=== PATIENT | female | born 1980 | race Hispanic/Latino ===

== ENCOUNTER 2019-03-05 22:21 | Emergency (ER) | payer BC, OTHER ==
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
--- OUTSIDE RECORDS SUMMARY | 2019-03-05 22:24 | XMS REPORT | Clinical Summary ---
:1980 Author Organization [facility] Address [facility] [place] [address] Care Team Providers Name Role Phone Unavailable Primary Care Provider Unavailable Allergies No Known Allergies Medications Medication Sig Dispensed Refills Start Date End Date Status bmmohkmnw-oexzqfox-dqu Take 30 mL by 1 Bottle 0 09/08/2018 Active roxide-simethicone mouth every 4 (MAALOX +) 200 mg hours as needed SuspIndications: LLQ for Pain. pain Active Problems Problem Noted Date LLQ pain Encounters Date Type Specialty Care Team Description 09/08/2018 Emergency Emergency Medicine Henrry Delarosa MD LLQ pain ( Primary Dx) 09/08/2018 Travel 09/07/2018 Travel after 03/04/2018 Social History Tobacco Use Types Packs/Day Years Used Date Never Assessed Sex Assigned at Date Recorded Not on file Job Start Date Occupation Industry Not on file Not on file Not on file Travel History Travel Start Travel End No recent travel history available. Last Filed Vital Signs Vital Sign Reading Time Taken Comments Blood Pressure 102/65 09/08/2018 11:07 AM [facility] Pulse 71 09/08/2018 11:07 AM [employer] [facility] Temperature 36.5 C (97.7 F) 09/08/2018 11:07 AM [facility]EEPER Respiratory Rate 18 09/08/2018 11:07 AM [facility] KEEPER Oxygen Saturation 98% 09/08/2018 11:07 AM [employer]AR KEEPER Inhaled Oxygen Concentration - - Weight - - Height - - Body Mass Index - - Plan of Treatment Health Maintenance Due Date Last Done Comments Cervical Cancer Scrn (3 Yrs) 2001 I[facility] Influenza Seasonal Jun to November (>/=19 yrs) 06/13/2019 Procedures Procedure Name Priority Date/Time Associated Comments Diagnosis CT ABDOMEN AND STAT 09/08/2018 9:52 AM LLQ pain Results for this PELVIS CONTRAST [facility] [facility] procedure are in the results section. BMP POC Routine 09/08/2018 12:50 AM Results for this [employer] [facility] procedure are in the results section. TEST STAT 09/08/2018 12:47 AM Results for this [facility] [facility] procedure are in the results section. HIV-1/HIV-2 ROUTINE STAT 09/08/2018 12:47 AM Results for this SCREENING [employer] [facility] procedure are in the results section. URINALYSIS STAT 09/08/2018 12:47 AM Results for this [employer] procedure are in the results section. LIPASE STAT 09/08/2018 12:47 AM Results for this [employer] procedure are in the results section. LIVER PROFILE STAT 09/08/2018 12:47 AM Results for this [employer] procedure are in the results section. CBC/DIFF STAT 09/08/2018 12:47 AM Results for this [employer]PER procedure are in the results section. after 03/04/[address] ABDOMEN AND PELVIS CONTRAST (09/08/2018 9:52 AM GEAR KEEPER) Specimen Impressions Performed At IMPRESSION: SMS Scattered diverticulosis without diverticulitis. If the report is "FINALIZED" it indicates that the attending/staff radiologist has reviewed the images and agrees with the resident's interpretation. Dictated By: Yasmani Velasquez MD, 09/08/2018 10:12 AM I have reviewed the study and agree with the findings in this report. Signed By: Jefferson Richardson MD, 09/08/2018 10:29 AM Narrative Performed At EXAM: CT Abdomen and Pelvis WITH contrast SMS INDICATION: eval for diverticulitis COMPARISON: None available TECHNIQUE: Abdomen and pelvis were scanned utilizing a multidetector helical scanner from the lung base to the pubic symphysisiliac crest after administration of IV contrast, if any was given (read below). Coronal and sagittal reformations were obtained. Routine protocol was performed. Scan was performed when during portal venous phase. IV CONTRAST: 150 mL of Omnipaque 300 ORAL CONTRAST: None COMPLICATIONS: None RADIATION DOSE: Total DLP: 673 mGy*cm Estimated effective dose: (DLP x 0.015 x size factor) mSv CTDIvol has been reviewed. It is below the limits set by the Radiation Protocol Committee (RPC). FINDINGS: LINES and TUBES: None. LOWER THORAX:Unremarkable HEPATOBILIARY:No focal hepatic lesions. No biliary ductal dilation. GALLBLADDER: No radio-opaque stones or sludge.No wall thickening. SPLEEN: No splenomegaly. PANCREAS: No focal masses or ductal dilatation. ADRENALS: No adrenal nodules. KIDNEYS/URETERS: Kidneys enhance symmetrically.No hydronephrosis. No cystic or solid mass lesions.No stones. GI TRACT: No abnormal distention, wall thickening, or evidence of bowel obstruction. Scattered diverticulosis. No diverticulitis. Appendix is normal. PELVIC ORGANS/BLADDER: The bladder is well distended without circumferential wall thickening. Status post hysterectomy. LYMPH NODES: No lymphadenopathy. VESSELS: Unremarkable. PERITONEUM / RETROPERITONEUM: No free air or fluid. BONES: Unremarkable. SOFT TISSUES: Diastases recti abdominis. Procedure Note Interface, Rad/Mammog In - 09/08/2018 10:34 AM GEAR KEEPER EXAM: CT Abdomen and Pelvis WITH contrast INDICATION: eval for diverticulitis COMPARISON: None available TECHNIQUE: Abdomen and pelvis were scanned utilizing a multidetector helical scanner from the lung base to the pubic symphysis iliac crest after administration of IV contrast, if any was given (read below). Coronal and sagittal reformations were obtained. Routine protocol was performed. Scan was performed when during portal venous phase. IV CONTRAST: 150 mL of Omnipaque 300 ORAL CONTRAST: None COMPLICATIONS: None RADIATION DOSE: Total DLP: 673 mGy*cm Estimated effective dose: (DLP x 0.015 x size factor) mSv CTDIvol has been reviewed. It is below the limits set by the Radiation Protocol Committee (RPC). FINDINGS: LINES and TUBES: None. LOWER THORAX: Unremarkable HEPATOBILIARY: No focal hepatic lesions. No biliary ductal dilation. GALLBLADDER: No radio-opaque stones or sludge. No wall thickening. SPLEEN: No splenomegaly. PANCREAS: No focal masses or ductal dilatation. ADRENALS: No adrenal nodules. KIDNEYS/URETERS: Kidneys enhance symmetrically. No hydronephrosis. No cystic or solid mass lesions. No stones. GI TRACT: No abnormal distention, wall thickening, or evidence of bowel obstruction. Scattered diverticulosis. No diverticulitis. Appendix is normal. PELVIC ORGANS/BLADDER: The bladder is well distended without circumferential wall thickening. Status post hysterectomy. LYMPH NODES: No lymphadenopathy. VESSELS: Unremarkable. PERITONEUM / RETROPERITONEUM: No free air or fluid. BONES: Unremarkable. SOFT TISSUES: Diastases recti abdominis. IMPRESSION IMPRESSION: Scattered diverticulosis without diverticulitis. If the report is "FINALIZED" it indicates that the attending/staff radiologist has reviewed the images and agrees with the resident's interpretation. Dictated By: Yasmani Velasquez MD, 09/08/2018 10:12 AM I have reviewed the study and agree with the findings in this report. Signed By: Jefferson Richardson MD, 09/08/2018 10:29 AM Performing Organization Address [facility] Phone Number SMS BMP POC (09/08/2018 12:50 AM GEAR KEEPER) CO2 POC 27 21 - 32 mmol/L [facility] 1 Chloride POC 104 98 - 107 mmol/L [facility] 1 Potassium POC 3.6 3.50 - 5.10 mmol/L [facility] 1 Sodium POC 142 136 - 145 mmol/L [facility] 1 Glucose POC 102 74 - 106 mg/dL [facility] 1 Urea Nitrogen POC 16 7 - 18 mg/dL [facility] 1 Creatinine POC 0.7 0.6 - 1.3 mg/dL [facility] 1 Calcium Ionized POC 1.26 1.15 - 1.29 mmol/L [facility] 1 Hemoglobin POC 13.3 12.0 - 16.0 g/dL [facility] 1 Hematocrit POC 39.0 37.0 - 47.0 % [facility] 1 GFR, Estimated >60 mL/min/1.73 m2 [facility] 1 GFR, Estim, Afr-Am >60 mL/min/1.73 m2 [facility] 1 Specimen Performing Organization Address [facility] Phone Number MIS[facility] HIV-1/HIV-2 ROUTINE SCREENING (09/08/2018 12:47 AM GEAR KEEPER) HIV-1/HIV-2 Negative NEG [facility] 4 Specimen Performing Organization Address [facility] Phone Number MISYS [facility] 4 UA CHEMISTRIES (09/08/2018 12:47 AM GEAR KEEPER) Color Yellow [facility] 2 Clarity Clear [facility] 2 Specific [place] 1.011 1.001 - 1.035 [facility] 2 pH 6.0 5 - 8 [facility] 2 Protein Negative NEG [facility] 2 Glucose Negative NEG [facility] 2 Ketones Negative NEG [facility] 2 Bilirubin Negative NEG [facility] 2 Nitrate Negative NEG [facility] 2 Urobilinogen,Semi-Qn <1.0 0.2 - 1.0 EU/dL [facility] 2 Leukocyte Negative NEG [facility] 2 Occult Blood 1+ (A) NEG [facility] 2 RBC 1 0 - 4 /HPF [facility] 2 WBC 2 0 - 5 /HPF [facility] 2 Epithelial Cell 1 /HPF [facility] 2 Specimen Urine Performing Organization Address [facility] Phone Number MISYS [facility] 2 TEST (09/08/2018 12:47 AM GEAR KEEPER) Negative [facility] 2 Specimen Urine Performing Organization Address [facility] Phone Number MISYS [facility] 2 LIVER PROFILE (09/08/2018 12:47 AM GEAR KEEPER) Protein, Total, Serum 8.4 (H) 6.0 - 8.3 g/dL [facility] 1 Albumin 4.7 3.7 - 5.3 g/dL [facility] 1 Bilirubin, Total 0.2 0.2 - 1.2 mg/dL [facility] 1 Alkaline Phosphatase, 177 (H) 34 - 104 U/L [facility] 1 S AST (SGOT) 24 13 - 39 U/L [facility] 1 ALT 23 7 - 52 U/L [facility] 1 D Bilirubin 0.1 0.0 - 0.2 mg/dL [facility] 1 Specimen Blood Performing Organization Address [facility] Phone Number MISYS [facility] 1 LIPASE (09/08/2018 12:47 AM GEAR KEEPER) Lipase 30 11 - 82 U/L [facility] 1 Specimen Blood Performing Organization Address [facility] Phone Number MISYS [facility] 1 CBC/DIFF (09/08/2018 12:47 AM GEAR KEEPER) WBC 8.4 4.5 - 11.0 K/uL [facility] 2 RBC 4.25 4.20 - 5.40 [facility] 2 M/uL Hemoglobin 12.9 12.0 - 16.0 [facility] 2 g/dL Hematocrit 38.9 37.0 - 47.0 % [facility] 2 MCV 92 82 - 92 fL [facility] 2 MCH 30.4 27.0 - 32.0 pg [facility] 2 MCHC 33.2 32.0 - 36.0 [facility] 2 g/dL RDW 39.8 36.4 - 46.3 fL [facility] 2 Platelets 231 150 - 400 K/uL [facility] 2 Mean Platelet Volume 10.4 9.4 - 12.4 fL [facility] 2 Percent NRBC 0.0 [facility] 2 Absolute NRBC 0.00 [facility] 2 Neutrophils 53.5 34.0 - 70.0 % [facility] 2 Lymphs 36.1 20.0 - 50.0 % [facility] 2 Monocytes 7.7 5.0 - 12.0 % [facility] 2 Eos 2.0 0.7 - 5.0 % [facility] 2 Basos 0.5 0.1 - 1.2 % [facility] 2 Immature Granulocytes 0.2 0.0 - 0.5 BT [facility] 2 Neutrophils (Absolute) 4.49 1.56 - 6.13 BT [facility] 2 K/uL Lymphs (Absolute) 3.04 1.18 - 3.74 BT [facility] 2 K/uL Monocytes(Absolute) 0.65 (H) 0.24 - 0.36 BT [facility] 2 K/uL Eos (Absolute) 0.17 0.04 - 0.36 BT [facility] 2 K/uL Baso (Absolute) 0.04 0.01 - 0.08 BT [facility] 2 K/uL Immature Grans (Abs) 0.02 0.00 - 0.03 BT [facility] 2 K/uL Specimen Blood Performing Organization Address City/State/Zipcode Phone Number MISYS [facility] 2 after 03/04/2018 Insurance Payer Benefit Plan / Subscriber ID Effective Dates Phone Address Type Group [employer] SELF-PAY xxxxxxxxx 2018-Pres [phone] [id number] SELF-PAY UNSCREENED ent [address] [place] [address] (Home) [place], [place] [phone] (Work)
--- OUTSIDE RECORDS SUMMARY | 2019-03-05 22:24 | XMS REPORT | Clinical Summary ---
:1980 Author Organization [facility] Address [address] [place] [address] Care Team Providers Name Role Phone Nancy Watters MD Primary Care Provider Allergies No Known Allergies Medications Medication Sig Dispensed Refills Start Date End Date Status dicyclomine (BENTYL) Take 1 tablet 30 tablet 0 04/10/2018 04/18/2018 20 mg tablet (20 mg total) by mouth every 6 (six) hours for 30 doses. Active Problems Problem Noted Date Pelvic pain in female 08/26/2017 Abnormal uterine bleeding (AUB) 08/26/2017 Encounters Date Type Specialty Care Team Description 01/03/2019 Emergency Emergency Medicine José West Flank pain, acute (Primary Dx); MD Juvencio Other microscopic hematuria 12/29/2018 Transcribe Orders Access Heena Knott Abdominal pain, unspecified abdominal location (Primary Dx) 04/10/2018 Emergency Emergency Medicine Phi Fang Upper abdominal pain Juvencio SINGLETON MD (Primary Dx) after 03/04/2018 Social History Tobacco Use Types Packs/Day Years Used Date Current Every Day Smoker Cigars Smokeless Tobacco: Never Used Alcohol Use Drinks/Week oz/Week Comments No Sex Assigned at Date Recorded Not on file Job Start Date Occupation Industry Not on file Not on file Not on file Travel History Travel Start Travel End No recent travel history available. Last Filed Vital Signs Vital Sign Reading Time Taken Blood Pressure 118/70 01/03/2019 3:05 PM CDT Pulse 70 01/03/2019 3:05 PM CDT Temperature 37 C (98.6 F) 01/03/2019 3:05 PM CDT Respiratory Rate 16 01/03/2019 3:05 PM CDT Oxygen Saturation 100% 01/03/2019 3:05 PM CDT Inhaled Oxygen Concentration - - Weight 66.2 kg (146 lb) 01/03/2019 12:28 PM CDT Height 160 cm (5' 3") 01/03/2019 12:28 PM CDT Body Mass Index 25.86 01/03/2019 12:28 PM CDT Plan of Treatment Health Maintenance Due Date Last Done Comments INFLUENZA VACCINE 04/13/2019 Implants Implanted Type Area Cottage Supervisor Device Shelf Model / Identifier Expiration Serial / Date Lot Barrier Adhsn Absrbl 3x4in Gynecare Interceed - [id number] Surgical N/A: N/A GYNECARE 12/11/2021 [id number] / Implanted: 08/26/2017 (Quantity not on file) Implants; / Expanders; [id number] Extenders; Surgical Wires Particle [facility] Absrbl Karin 5gm [facility] - [id number] Surgical N/A: N/A MEDAFOR 06/10/2022 [id number] / Implanted: 08/26/2017 (Quantity not on file) Implants; / Expanders; [id number] Extenders; Surgical Wires Procedures Procedure Name Priority Date/Time Associated Comments Diagnosis CT RENAL STONE STAT 01/03/2019 5:14 Results for this PROTOCOL PM CDT procedure are in the results section. ESTIMATED GFR STAT 01/03/2019 2:27 Results for this PM CDT procedure are in the results section. LIPASE LEVEL STAT 01/03/2019 2:27 Results for this PM CDT procedure are in the results section. COMPREHENSIVE STAT 01/03/2019 2:27 Results for this METABOLIC PANEL PM CDT procedure are in the results section. HC COMPLETE BLD COUNT STAT 01/03/2019 2:27 Results for this W/AUTO DIFF PM CDT procedure are in the results section. HCG QUALITATIVE, URINE Routine 01/03/2019 12:48 Results for this SCREEN PM CDT procedure are in the results section. URINALYSIS SCREEN AND STAT 01/03/2019 12:48 Results for this MICROSCOPY, WITH PM CDT procedure are in REFLEX TO CULTURE the results section. URINE CULTURE STAT 01/03/2019 12:48 Results for this PM CDT procedure are in the results section. CT ABDOMEN PELVIS W STAT 04/10/2018 8:13 Results for this CONTRAST AM CDT procedure are in the results section. URINE CULTURE STAT 04/10/2018 7:32 Results for this AM CDT procedure are in the results section. URINALYSIS SCREEN AND STAT 04/10/2018 7:31 Results for this MICROSCOPY, WITH AM CDT procedure are in REFLEX TO CULTURE the results section. ZZESTIMATED GFR STAT 04/10/2018 6:31 Results for this AM CDT procedure are in the results section. HC COMPLETE BLD COUNT STAT 04/10/2018 6:31 Results for this W/AUTO DIFF AM CDT procedure are in the results section. LIPASE LEVEL STAT 04/10/2018 6:31 Results for this AM CDT procedure are in the results section. AMYLASE LEVEL STAT 04/10/2018 6:31 Results for this AM CDT procedure are in the results section. LACTIC ACID LEVEL, STAT 04/10/2018 6:31 Results for this SEPSIS - NOW AND AM CDT procedure are in REPEAT 2X EVERY 3 the results HOURS section. COMPREHENSIVE STAT 04/10/2018 6:31 Results for this METABOLIC PANEL AM CDT procedure are in the results section. after 03/04/[address] Renal Stone Protocol (01/03/2019 5:14 PM CDT) Specimen Narrative Performed At Examination: CT RENAL STONE PROTOCOL RADIANT Clinical history: flank pain and hematuria Comparison: April 10, 2018 Technique: Multiple computerized axial tomographic images were obtained of the abdomen and pelvis without IV or enteric contrast according to renal calculus protocol.Sagittal and coronal computerized reformatted images were also obtained. CT scans are performed using radiation dose reduction techniques.Technical factors are evaluated and adjusted to ensure appropriate moderation of exposure.Automated dose management technology is applied to adjust radiation exposure while achieving a diagnostic quality image. IMPRESSION: The visualized lung bases are clear. Abdomen: 1.There is no evidence of renal or ureteral calculus or obstruction. 2.Limited evaluation of the unenhanced liver, spleen, adrenal glands, and pancreas is otherwise grossly unremarkable, though not considered to diagnostic standards given specialized noncontrast protocol. 3.The pancreatic and biliary ducts are nondilated. The abdominal aorta is normal caliber. The bowel is not dilated, though cannot be formally evaluated given absence of enteric contrast. 4.A small local hernia contains only fat. Pelvis: 1. Hysterectomy. The bladder is unremarkable. 2. There is no acute osseous pathology. CONCLUSION: 1. No evidence of renal or ureteral calculus or obstruction. 2. Otherwise as above. [facility]-[id number] Procedure Note Interface, Radiology Results Incoming - 01/03/2019 5:42 PM CDT Examination: CT RENAL STONE PROTOCOL Clinical history: flank pain and hematuria Comparison: April 10, 2018 Technique: Multiple computerized axial tomographic images were obtained of the abdomen and pelvis without IV or enteric contrast according to renal calculus protocol.Sagittal and coronal computerized reformatted images were also obtained. CT scans are performed using radiation dose reduction techniques. Technical factors are evaluated and adjusted to ensure appropriate moderation of exposure. Automated dose management technology is applied to adjust radiation exposure while achieving a diagnostic quality image. IMPRESSION: The visualized lung bases are clear. Abdomen: 1. There is no evidence of renal or ureteral calculus or obstruction. 2. Limited evaluation of the unenhanced liver, spleen, adrenal glands, and pancreas is otherwise grossly unremarkable, though not considered to diagnostic standards given specialized noncontrast protocol. 3. The pancreatic and biliary ducts are nondilated. The abdominal aorta is normal caliber. The bowel is not dilated, though cannot be formally evaluated given absence of enteric contrast. 4. A small local hernia contains only fat. Pelvis: 1. Hysterectomy. The bladder is unremarkable. 2. There is no acute osseous pathology. CONCLUSION: 1. No evidence of renal or ureteral calculus or obstruction. 2. Otherwise as above. [facility]-[id number] Performing Organization Address City/[facility]/Zipcode Phone Number [facility] [address] [place] [address] Estimated GFR (01/03/2019 2:27 PM CDT) Estimated GFR >=90 mL/min/1.73 [facility] Comment: [address] CatergoryUnitsInterpretation [facility] G1 >=90 Normal or high G2 60-89Mildly decreased [id number] to moderately decreased [id number] to severely decreased G4 15-29Severely decreased G5 <15Kidney failure The eGFR was calculated using the Chronic Kidney Disease Epidemiology Collaboration (CKD-EPI) equation. Interpretation is based on recommendations of the National Kidney Foundation-Kidney Disease Outcomes Quality Initiative (NKF-KDOQI) published in 2014. Specimen Plasma specimen Performing Organization Address City/State/Zipcode Phone Number [facility] DEPARTMENT OF PATHOLOGY [address] [facility] [place] [place] [address] AND GENOMIC MEDICINE [facility] [address] CBC with platelet and differential (01/03/2019 2:27 PM CDT)Only the most recent of2 resultswithin the time period is included. WBC 6.5 4.5 - 11.0 k/uL [facility] RBC 4.26 4.20 - 5.50 m/uL [facility] HGB 12.7 12.0 - 16.0 g/dL [facility] HCT 38.4 37.0 - 47.0 % [facility] MCV 90.1 82.0 - 100.0 fL [facility] MCH 29.8 27.0 - 34.0 pg [facility] MCHC 33.1 31.0 - 37.0 g/dL [facility] RDW - SD 38.3 37.0 - 55.0 fL [facility] MPV 10.3 6.9 - 11.0 fL [facility] Platelet count 228 150 - 400 K/uL [facility] Nucleated RBC 0.00 /100 WBC [facility] Neutrophils 53.5 39.0 - 69.0 % [facility] Lymphocytes 36.9 25.0 - 45.0 % [facility] Monocytes 7.2 0.0 - 10.0 % [facility] Eosinophils 1.5 0.0 - 5.0 % [facility] Basophils 0.6 0.0 - 1.0 % [facility] Immature granulocytes 0.3 0.0 - 1.0 % [facility] Specimen Blood Performing Organization Address City/[facility]/Zipcode Phone Number [facility] DEPARTMENT OF PATHOLOGY [id number] [place] [address] [facility] [id number] [place] [address] HOSPITAL Lipase level (01/03/2019 2:27 PM CDT)Only the most recent of2 resultswithin the time period is included. Lipase 29 13 - 60 U/L [facility] Specimen Plasma specimen Performing Organization Address City/[facility]/Zipcode Phone Number [facility] DEPARTMENT OF PATHOLOGY [id number] [place] [address] AND GENOMIC MEDICINE [facility] [address] Comprehensive metabolic panel (01/03/2019 2:27 PM CDT)Only the most recent of2 resultswithin the time period is included. Sodium 139 135 - 148 mEq/L [facility] Potassium 4.0 3.5 - 5.0 mEq/L [facility] Chloride 104 98 - 112 mEq/L [facility] CO2 24 24 - 31 mEq/L [facility] Anion gap 11@ANIO 7 - 15 mEq/L [facility] BUN 10 6 - 20 mg/dL [facility] Creatinine 0.78 0.50 - 0.90 [facility] mg/dL [facility] Glucose 100 (H) 65 - 99 mg/dL [facility] Calcium 9.3 8.3 - 10.2 mg/dL [facility] Protein 8.3 6.3 - 8.3 g/dL [facility] Albumin 4.4 3.5 - 5.0 g/dL [facility] A/G ratio 1.1 0.7 - 3.8 [facility] Alkaline phosphatase 202 (H) 35 - 104 U/L [facility] AST 32 10 - 35 U/L [facility] ALT 32 5 - 50 U/L [facility] Total bilirubin <0.2 0.2 - 1.2 mg/dL [facility] Specimen Plasma specimen Performing Organization Address City/State/Zipcode Phone Number [facility] DEPARTMENT OF PATHOLOGY [address] [place] [address] AND GENOMIC MEDICINE [facility] [id number] [place] [address] Urinalysis screen and microscopy, with reflex to culture (01/03/2019 12:48 PM CDT)Only the most recent of2 resultswithin the time period is included. Specimen site Clean catch [facility] Color, UA Straw [facility] Appearance, UA Clear [facility] Specific gravity, UA 1.005 1.001 - 1.030 [facility] pH, UA 7.0 5.0 - 9.0 [facility] Protein, UA Negative Negative [facility] Glucose, UA Negative Negative [facility] Ketones, UA Negative Negative [facility] Bilirubin, UA Negative Negative [facility] Blood, UA Small (A) Negative [facility] Nitrite, UA Negative Negative [facility] Urobilinogen, UA <2.0 <2.0 E.U./dL [facility] Leukocyte esterase, Negative Negative [facility] Epithelial cells, UA <1 /HPF [facility] WBC, UA <1 0 - 4 /HPF [facility] RBC, UA 1 0 - 5 /HPF [facility] Bacteria, UA Few None seen [facility] Yeast, UA None seen [facility] Yeast with None seen [facility] pseudohyphae, UA [facility] Specimen Urine Performing Organization Address City/[facility] Phone Number [facility] DEPARTMENT OF PATHOLOGY [address] [place] [address] hCG qualitative, urine screen (01/03/2019 12:48 PM CDT) hCG qualitative, NegativeComment: [facility] urine Sensitivity of HCG OLALLA test: 25 mIU/ml HOSPITAL Specimen Urine Performing Organization Address City/[facility] Phone Number [facility] DEPARTMENT OF PATHOLOGY [address] [place] [address] Urine culture (01/03/2019 12:48 PM CDT)Only the most recent of2 resultswithin the time period is included. Urine culture SEE COMMENTComment: [facility] Bacteriuria screen [facility] negative. Specimen Performing Organization Address City/[facility]/Zipcode Phone Number [facility] DEPARTMENT OF PATHOLOGY [address] [place] [address] Abdomen Pelvis W Contrast (04/10/2018 8:13 AM CDT) Specimen Narrative Performed At EXAMINATION:CT ABDOMEN PELVIS W CONTRAST HM RADIANT CLINICAL HISTORY:RUQ Pain elevatedAST ALTpt unsure if she has GB TECHNIQUE: Multiple axial images of the abdomen and pelvis were obtained following intravenous administration of iodinated contrast. Sagittal and coronal computerized reformatted images were also obtained. Approximately 100 cc of Omnipaque [address] scan performed using radiation dose reduction techniques. Technical factors are evaluated and adjusted to ensure appropriate moderation of exposure. Automated dose management technology is applied to adjust the radiation dose to minimize expose whileachieving a diagnostic quality image. COMPARISON:None. FINDINGS: Lung bases: . The visualized portion of the heart and thoracic aorta are unremarkable. Liver: There is no intrahepatic biliary dilatation or mass. The liver is normal in attenuation, contour and size. Gallbladder: Unremarkable. Pancreas: The pancreas is normal in caliber and attenuation. No inflammatory process. The pancreatic duct is within normal limits. Spleen: The spleen is normal in appearance.. Kidneys and ureters: The kidneys function symmetrically. There is no enhancing renal lesion. No hydronephrosis or renal stone. The ureters are normal in course and caliber. Adrenal glands: Unremarkable. GI tract: The small bowel is normal in course and caliber. The colon is unremarkable. No bowel wall thickening is identified. There is no acute inflammatory process. The appendix is normal. No right lower quadrant inflammation is seen. The stomach is unremarkable. Fluid: None. Pelvis: Bladder: The urinary bladder is unremarkable. Genitalia: Unremarkable. Bones: Unremarkable. Retroperitoneum/intraperitoneum: No retroperitoneal or mesenteric pathologic lymphadenopathy is seen. Vasculature: No evidence of aortic aneurysm or dissection.The mesenteric vessels and visceral vessel are patent. Abdominal wall: Unremarkable. IMPRESSION: Unremarkable exam with no acute findings. No CT evidence of hepatitic lesion. No CT evidence of acute cholecystitis. No CT evidence of acute pancreatitis. No CT evidence of appendicitis, colitis or bowel obstruction. [id number] Procedure Note Hm Interface, Radiology Results Incoming - 04/10/2018 8:23 AM CDT EXAMINATION: CT ABDOMEN PELVIS W CONTRAST CLINICAL HISTORY: RUQ Pain elevated AST ALT pt unsure if she has GB TECHNIQUE: Multiple axial images of the abdomen and pelvis were obtained following intravenous administration of iodinated contrast. Sagittal and coronal computerized reformatted images were also obtained. Approximately 100 cc of Omnipaque [address] scan performed using radiation dose reduction techniques. Technical factors are evaluated and adjusted to ensure appropriate moderation of exposure. Automated dose management technology is applied to adjust the radiation dose to minimize expose while achieving a diagnostic quality image. COMPARISON: None. FINDINGS: Lung bases: . The visualized portion of the heart and thoracic aorta are unremarkable. Liver: There is no intrahepatic biliary dilatation or mass. The liver is normal in attenuation, contour and size. Gallbladder: Unremarkable. Pancreas: The pancreas is normal in caliber and attenuation. No inflammatory process. The pancreatic duct is within normal limits. Spleen: The spleen is normal in appearance.. Kidneys and ureters: The kidneys function symmetrically. There is no enhancing renal lesion. No hydronephrosis or renal stone. The ureters are normal in course and caliber. Adrenal glands: Unremarkable. GI tract: The small bowel is normal in course and caliber. The colon is unremarkable. No bowel wall thickening is identified. There is no acute inflammatory process. The appendix is normal. No right lower quadrant inflammation is seen. The stomach is unremarkable. Fluid: None. Pelvis: Bladder: The urinary bladder is unremarkable. Genitalia: Unremarkable. Bones: Unremarkable. Retroperitoneum/intraperitoneum: No retroperitoneal or mesenteric pathologic lymphadenopathy is seen. Vasculature: No evidence of aortic aneurysm or dissection. The mesenteric vessels and visceral vessel are patent. Abdominal wall: Unremarkable. IMPRESSION: Unremarkable exam with no acute findings. No CT evidence of hepatitic lesion. No CT evidence of acute cholecystitis. No CT evidence of acute pancreatitis. No CT evidence of appendicitis, colitis or bowel obstruction. [id number] Performing Organization Address City/[facility]/Zipcode Phone Number [facility] [address] [place] [address] Lactic acid level, SEPSIS - Now and repeat 2x every 3 hours (04/10/2018 6:31 AM CDT) Lactic acid 1.5 0.5 - 2.2 mmol/L [facility] DEPARTMENT OF PATHOLOGY AND GENOMIC MEDICINE Specimen Plasma specimen Performing Organization Address City/State/Zipcode Phone Number [facility] DEPARTMENT OF PATHOLOGY [address] [place] [address] AND [employer] [facility] Estimated GFR (04/10/2018 6:31 AM CDT) GFR Non Af Amer >90 mL/min/1.73 [facility] DEPARTMENT OF m2 PATHOLOGY AND GENOMIC MEDICINE GFR Af Amer >90 mL/min/1.73 [facility] DEPARTMENT OF Comment: m2 PATHOLOGY AND Chronic kidney disease: <60 mL/min/1.73m2 GENOMIC MEDICINE Kidney failure: <15 mL/min/1.73m2 The estimated GFR is calculated from the IDMS-traceable Modification of Diet in Renal Disease Equation. The accuracy of the calculation is poor when the creatinine is normal. Calculated values >90 mL/min/1.73m2 are not reported. This equation has not been validated in children (<18 years), women, the elderly (>70 years), or ethnic groups other than Caucasians and Americans. Specimen Plasma specimen Performing Organization Address City/State/Zipcode Phone Number [facility] DEPARTMENT OF PATHOLOGY [address] [facility] [place] [address] AND [employer] [facility] Amylase level (04/10/2018 6:31 AM CDT) Amylase 31 13 - 73 U/L [facility] DEPARTMENT OF PATHOLOGY AND GENOMIC MEDICINE Specimen Plasma specimen Performing Organization Address City/[facility]/Zipcode Phone Number [facility] DEPARTMENT OF PATHOLOGY [address] [facility] [place] [address] AND [employer] [facility] after 03/04/2018 Advance Directives Patient has advance care planning documents on file. For more information, please contact:[place] [address]
--- OUTSIDE RECORDS SUMMARY | 2019-03-05 22:25 | XMS REPORT | Summary of Care ---
:1980 Author Name KATI Farnsworth, ESTELA Address [facility] Unavailable , Care Team Providers Name Role Phone KATI Farnsworth, ESTELA Unavailable Unavailable Functional Status Name Dates Details Functional status health issues are not documented Status: Name Dates Details Cognitive status health issues are not documented Status: Problems Name Dates Details Cervical prolapse (618.1, N81.4) Status: Active Rectocele (618.04, N81.6) Status: Active Inadequate pelvic muscles (728.9, M62.9) Status: Active Abnormal vaginal bleeding (623.8, N93.9) Status: Active Cervicitis (616.0, N72) Status: Active Pelvic pain (R10.2) Status: Active Sexual dysfunction in 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, 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) Status: Active Dyspareunia, female (625.0, N94.10) Status: Active Medications Name Dates Details No Reported Medications Refills: 0 Active Allergies and Adverse Reactions Name Dates Details No Known Drug Allergies (Allergy) Status: Active Past Medical History Name Dates Details History of Anxiety and depression (300.00, F41.8) Status: Resolved Procedures Procedure Dates Details History of tubal ligation Completed Immunization Name Dates Details Immunizations not documented Family History Name Dates Details Family history of diabetes mellitus (V18.0, Z83.3) Comments: Maternal Relatives Status: Active Family history of cardiac disorder (V17.49, Z82.49) Comments: Maternal Relatives Status: Active Family history of hypertension (V17.49, Z82.49) Comments: Maternal Relatives Status: Active Family history of cerebrovascular accident (CVA) (V17.1, Z82.3) Comments: Maternal Relatives Status: Active Family history of diabetes mellitus (V18.0, Z83.3) Comments: Paternal Relatives Status: Active Family history of cardiac disorder (V17.49, Z82.49) Comments: Paternal Relatives Status: Active Family history of cerebrovascular accident (CVA) (V17.1, Z82.3) Comments: Paternal Relatives Status: Active Name Dates Details Family history of malignant neoplasm of breast (V16.3, Z80.3) Status: Active Family history of malignant neoplasm of stomach (V16.0, Z80.0) Status: Active Social History Name Dates Details - Status: Name Dates Details Never smoker Vital Signs Date Test Result Details [id number] BP Systolic 119 mm[Hg] Status: Comments: Location: LUE; Position: Sitting BP Diastolic 76 mm[Hg] Status: Comments: Location: LUE; Position: Sitting Height 63 in Status: Weight 127.25 lb Status: Body Mass Index Calculated 22.54 kg/m2 Status: Body Surface Area Calculated 1.6 m2 Status: Temperature 98 f Status: Comments: Method: Oral Heart Rate 68 /min Status: Comments: Location: L Radial; Results Date Description Value Details Results not documented Plan of Care Name Dates Details Planned Observations Planned Goals not documented Interventions Provided InstructionsPatient Specific Education Given; Done: 29 Jul 2017Discussion/ SummaryI discussed with pt about her condition, findings of physical exam, and her treatment option including conservative care, Medications, and surgical option. Pt wishes to have surgery.we also spoke about R/B/A of Cystoscopy at the time of her surgery. Pt said she understood.R/B/A of Cystoscopy and ANIP were discussed with pt. Pt said she understood.Advised pt to see Dr. Knott for pap smear prior to surgery. Instructions Name Dates Details Instructions not documented Encounters Appointment; ESTELA PARIKH M.D. On: 29-Jul-2017 8:30 Encounter Diagnosis: Problem not documented
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
--- OUTSIDE RECORDS SUMMARY | 2019-03-05 22:25 | XMS REPORT ---
:1980 Author Organization [facility] Address [address] [place] [address] Care Team Providers Name Role Phone Unavailable Unavailable Unavailable Problems This patient has no known problems. Allergies, Adverse Reactions, Alerts This patient has no known allergies or adverse reactions. Medications This patient has no known medications. Encounters Start End Encounter Admission Attending Care Care Encounter Date/Time Date/Time Type Type Clinicians Facility Department ID 2018-09-08 2018-09-[address] [facility] [id number] 09:31:44 09:31:44 2018-09-08 2018-09-08 Emergency [facility] [id number] 06:20:56 06:20:56 Results Test Description Test Time Test Comments Text Results Atomic Results Result Comments CT ABDOMEN AND PELVIS W/WO CLINICAL INDICATION: R10.2 Pelvic and perineal painMODALITY: Ensocare Supria [address] (Iterative dose reduction technique is used).TECHNIQUE: Helical imaging of the abdomen and pelvis is performed. Oral contrast is administered. 95 mls Isovue are administered IV. Imaging performed prior to and after administration of contrast.Computed Tomography Dose Index: 19.6 mGy. IMPRESSION:Unremarkable CT. No acute abnormality. No evidence of metastatic disease.FINDINGS:COMPARISON: NoneThe lung bases are clear. No pleural disease is present.The liver is normal in size and contour with no focal attenuation defect suspicious for replacement lesion or abnormal contrast enhancement. Hepatic veins, portal venous system and biliary tree are normal. The gallbladder is normal in appearance.Stomach and duodenum are unremarkable. The spleen is normal in size and contour. No pancreatic mass, pancreatic duct dilatation or peripancreatic edema is visible.Adrenal glands and kidneys are normal. There are no renal calculi, hydronephrosis or masses noted.Neither retrocrural nor retroperitoneal adenopathy is present. Vascular structures are within normal limits.No significant bowel pathology is noted. Normal appendix. Omentum and mesentery are unremarkable.Abdominal wall is intact.No ascites visualized.No lytic or blastic osseous lesions are observed.The urinary bladder is unremarkable.The uterus is retroverted. The adnexa are within normal limits. No free fluid is present in the pelvis.No pelvic or inguinal lymphadenopathy is evident.PQRS 436: [id number] (For official use only.)
[2019-03-05 23:38] LABS: Absolute Lymphocytes (CBC) 2.8 K/uL (0.7-4.9); Basophils % 0.5 % (0-1.3); Eosinophils % 2.3 % (0-4.4); Lymphocytes % 37.1 % (15.3-44.8); MPV 8.7 fL (7.6-11.3); RBC Red Blood Cell Count 4.19 M/uL (3.86-4.86)
[2019-03-05 23:50] LABS: ALT/SGPT 33 U/L (12-78); AST/SGOT 27 U/L (15-37); Albumin 3.6 g/dL (3.4-5.0); Alkaline Phosphatase 192 U/L (45-117); BUN Blood Urea Nitrogen 15 mg/dL (7-18); Bicarbonate 26 mmol/L (21-32); Bilirubin Direct < 0.1 mg/dL (0-0.2); Bilirubin Total 0.3 mg/dL (0.2-1.0); Glucose Level 103 mg/dL (74-106); Lipase 136 U/L (73-393); Potassium 3.7 mmol/L (3.5-5.1); Sodium Level 141 mmol/L (136-145)
[2019-03-06 01:08] LABS: Urine Blood TRACE (NEG); Urine Glucose NEGATIVE (NEG); Urine Protein NEGATIVE (NEG); Urine pH 7.5 (5.0-7.0)
[2019-03-06] MEDS ORDERED: KETOROLAC 30 MG/ML INJ ONE (01:28)
[2019-03-06] MEDS ORDERED: NA CHLORIDE 0.9% 1,000 ML ONE (01:29)
[2019-03-06] MEDS ORDERED: ONDANSETRON 4 MG/2 ML VIAL ONE (01:29)
--- NOTE | 2019-03-06 01:46 | ER ---
Nurse's Notes [facility] Name: Maria Victoria Jain Age: 38 yrs Sex: Female : 1980 Arrival Date: 03/05/2019 Time: 22:23 Bed 19 Private MD: Diagnosis: Unspecified abdominal pain;Constipation Presentation: 03/05 22:35 Presenting complaint: Patient states: "Since 2-3 months I've been having really bad cc3 constipation. For the past 3 days I've been having pain on my right upper abdomen radiating to my right upper back and I also have left lower abdominal pain. I didn't have bowel movement since 4 days now". Transition of care: patient was not received from another setting of care. Onset of symptoms was March 02, 2019. Risk Assessment: Do you want to hurt yourself or someone else? Patient reports no desire to harm self or others. Initial Sepsis Screen: Does the patient meet any 2 criteria? No. Patient's initial sepsis screen is negative. Does the patient have a suspected source of infection? No. Patient's initial sepsis screen is negative. Care prior to arrival: None. 22:35 Method Of Arrival: Ambulatory cc3 22:35 Acuity: CIRA 3 cc3 Triage Assessment: 22:35 General: Appears in no apparent distress. uncomfortable, Behavior is calm, cooperative, cc3 appropriate for age. Pain: Complains of pain in right upper quadrant abdomen radiating to back, left lower quadrant abdomen Pain radiates to rigth upper back Pain currently is 8 out of 10 on a pain scale. Quality of pain is described as aching. EENT: No signs and/or symptoms were reported regarding the EENT system. Neuro: Level of Consciousness is awake, alert, obeys commands, Oriented to person, place, time, situation, Appropriate for age. Cardiovascular: Denies chest pain, Patient's skin is warm and dry. Respiratory: Airway is patent Respiratory effort is even, unlabored, Respiratory pattern is regular, symmetrical. GI: Abdomen is round distended. : No signs and/or symptoms were reported regarding the genitourinary system. Derm: No signs and/or symptoms reported regarding the dermatologic system. Musculoskeletal: Circulation, motion, and sensation intact. Range of motion: intact in all extremities. FINANCIAL AID ADVISOR: 22:35 LMP N/A - Hysterectomy cc3 Historical: - Allergies: 22:35 No Known Allergies; cc3 - PMHx: 22:35 breast lump; Pneumothorax; thorocentesis; cc3 - PSHx: 22:35 Hysterectomy; cc3 - Immunization history:: Adult Immunizations up to date. - Social history:: Smoking status: Patient/guardian denies using tobacco, never smoked. - Ebola Screening: : No symptoms or risks identified at this time. Screenin:35 Abuse screen: Denies threats or abuse. Denies injuries from another. Nutritional cc3 screening: No deficits noted. Tuberculosis screening: No symptoms or risk factors identified. Fall Risk Ambulatory Aid- None/Bed Rest/Nurse Assist (0 pts). Gait- Normal/Bed Rest/Wheelchair (0 pts) Mental Status- Oriented to own ability (0 pts). Assessment: 22:35 GI: Bowel sounds present X 4 quads. Abd is soft and non tender X 4 quads. cc3 23:30 Reassessment: Patient appears in no apparent distress at this time. Patient and/or cc3 family updated on plan of care and expected duration. Pain level reassessed. Patient is alert, oriented x 3, equal unlabored respirations, skin warm/dry/pink. 03/06 00:20 Reassessment: Patient appears in no apparent distress at this time. Patient and/or cc3 family updated on plan of care and expected duration. Pain level reassessed. Patient is alert, oriented x 3, equal unlabored respirations, skin warm/dry/pink. Patient said she's having right upper and left lower abdominal pain again with NRS of 9/10, PA Page informed but no new orders made. 00:33 Reassessment: Patient taken by fresh foods technician to their department by wheelchair. cc3 01:04 Reassessment: Patient appears in no apparent distress at this time. Patient and/or cc3 family updated on plan of care and expected duration. Pain level reassessed. Patient is alert, oriented x 3, equal unlabored respirations, skin warm/dry/pink. Patient came back from CT scan department, awaiting result. 01:50 Reassessment: Patient appears in no apparent distress at this time. Patient and/or cc3 family updated on plan of care and expected duration. Pain level reassessed. Patient is alert, oriented x 3, equal unlabored respirations, skin warm/dry/pink. ARLINE Restrepo discharged the patient home, no prescription given. IV cannula removed and patient left ER vitally stable and ambulatory. Patient denies pain at this time. Patient states feeling better. Patient states symptoms have improved. Vital Signs: 03/05 22:35 BP 114 / 72; Pulse 69; Resp 17 S; Temp 98.1(O); Pulse Ox 99% on R/A; Weight 69.85 kg cc3 (R); Height 5 ft. 3 in. (160.02 cm) (R); Pain 8/10; 23:45 BP 107 / 77; Pulse 74; Resp 17 S; Pulse Ox 99% on R/A; cc3 03/06 00:24 BP 114 / 67; Pulse 69; Resp 16 S; Pulse Ox 98% on R/A; Pain 9/10; cc3 01:07 BP 109 / 74; Pulse 72; Resp 16 S; Pulse Ox 98% on R/A; cc3 01:50 BP 112 / 73; Pulse 70; Resp 15 S; Pulse Ox 98% on R/A; Pain 1/10; cc3 03/05 22:35 Body Mass Index 27.28 (69.85 kg, 160.02 cm) cc3 ED Course: 03/05 22:23 Patient arrived in ED. do 22:33 Nahomy Terrazas is Primary Nurse. cc3 22:35 Patient has correct armband on for positive identification. Bed in low position. Call cc3 light in reach. Side rails up X 1. Pulse ox on. NIBP on. 22:35 Arm band placed on right wrist. Patient notified of wait time. cc3 22:37 Irving Restrepo PA is PHCP. cp 22:37 Yordan Pavon MD is Attending Physician. cp 22:47 Triage completed. cc3 23:20 Inserted saline lock: 20 gauge in left antecubital area, using aseptic technique. Blood cc3 collected. 03/06 00:58 Abdomen In Process Unspecified. EDMS 01:45 Yordan Lozada MD is Referral Physician. cp 01:50 No provider procedures requiring assistance completed. IV discontinued, intact, cc3 bleeding controlled, No redness/swelling at site. Pressure dressing applied. Administered Medications: 01:15 Drug: TORadol 30 mg Route: IVP; Site: left antecubital; cc3 01:50 Follow up: Response: No adverse reaction; Pain is decreased; NRS 1/10 cc3 01:15 Drug: NS 0.9% 1000 ml Route: IV; Rate: 1 bolus; Site: left antecubital; cc3 01:50 Follow up: Response: No adverse reaction; IV Status: Completed infusion; IV Intake: cc3 1000ml 01:20 Drug: Zofran 4 mg Route: IVP; Site: left antecubital; cc3 01:50 Follow up: Response: No adverse reaction; Nausea is decreased cc3 Intake: 01:50 IV: 1000ml; Total: 1000ml. cc3 Outcome: 01:46 Discharge ordered by MD. cp 01:50 Discharged to home ambulatory. cc3 01:50 Condition: stable 01:50 Discharge instructions given to patient, Instructed on discharge instructions, follow up and referral plans. Demonstrated understanding of instructions, follow-up care. 01:56 Patient left the ED. cc3 Signatures: Dispatcher [employer] EDMS Irving Restrepo PA PA cp [place], Danielle do Cordel, Charlene cc3 Corrections: (The following items were deleted from the chart) 03/05 23:58 22:35 GI: Bowel sounds present X 4 quads. Abd is soft and non tender cc3 cc3 06 00:33 00:20 Reassessment: Patient appears in no apparent distress at this time. Patient cc3 and/or family updated on plan of care and expected duration. Pain level reassessed. Patient is alert, oriented x 3, equal unlabored respirations, skin warm/dry/pink. Patient said she's having right upper and left lower abdominal pain again with NRS of 9/10, ARLINE Restrepo informed. cc3 02:21 00:24 BP 114 / 67; Pulse 69bpm; Resp 16bpm; Spontaneous; Pulse Ox 98% RA; cc3 cc3
--- NOTE | 2019-03-06 01:46 | EDPHYS ---
Physician Documentation [facility] Name: Maria Victoria Jain Age: 38 yrs Sex: Female : 1980 Arrival Date: 03/05/2019 Time: 22:23 Bed 19 Private MD: ED Physician Yordan Pavon HPI: 03/05 23:00 This 38 yrs old Female presents to ER via Ambulatory with complaints of cp Abdominal Pain. 23:00 The patient presents with abdominal pain in the right upper quadrant, in the left lower cp quadrant. Onset: The symptoms/episode began/occurred 3-4 days. The symptoms radiate to right back. Associated signs and symptoms: Pertinent positives: nausea, constipation with no bowel movement times 4 days. The symptoms are described as constant. Severity of pain: in the emergency department the pain is unchanged despite home interventions. BAND NAILER: 22:35 LMP N/A - Hysterectomy cc3 Historical: - Allergies: 22:35 No Known Allergies; cc3 - PMHx: 22:35 breast lump; Pneumothorax; thorocentesis; cc3 - PSHx: 22:35 Hysterectomy; cc3 - Immunization history:: Adult Immunizations up to date. - Social history:: Smoking status: Patient/guardian denies using tobacco, never smoked. - Ebola Screening: : No symptoms or risks identified at this time. ROS: 23:05 Constitutional: Negative for body aches, chills, fever, poor PO intake. cp 23:05 Eyes: Negative for injury, pain, redness, and discharge. cp 23:05 ENT: Negative for drainage from ear(s), ear pain, sore throat, difficulty swallowing, difficulty handling secretions. 23:05 Cardiovascular: Negative for chest pain, palpitations. 23:05 Respiratory: Negative for cough, shortness of breath, wheezing. 23:05 Abdomen/GI: Positive for abdominal pain, nausea, constipation, Negative for vomiting, diarrhea, black/tarry stool, rectal bleeding. 23:05 Back: Positive for radiated pain, of the right mid back, Negative for injury or acute deformity, decreased range of motion. 23:05 : Negative for urinary symptoms, vaginal bleeding. 23:05 All other systems are negative. Exam: 23:10 Constitutional: The patient appears in no acute distress, alert, awake, non-toxic, well cp developed, well nourished. 23:10 Head/Face: Normocephalic, atraumatic. cp 23:10 Eyes: Periorbital structures: appear normal, Conjunctiva: normal, no exudate, no injection, Sclera: no appreciated abnormality, Lids and lashes: appear normal, bilaterally. 23:10 ENT: External ear(s): are unremarkable, Nose: is normal, Mouth: is normal, Posterior pharynx: is normal, airway is patent. 23:10 Chest/axilla: Inspection: normal, Palpation: is normal, no crepitus, no tenderness. 23:10 Cardiovascular: Rate: normal, Rhythm: regular. 23:10 Respiratory: the patient does not display signs of respiratory distress, Respirations: normal, no use of accessory muscles, no retractions, no splinting, no tachypnea, labored breathing, is not present, Breath sounds: are clear throughout, no decreased breath sounds, no stridor, no wheezing. 23:10 Abdomen/GI: Inspection: distension, that is mild, Bowel sounds: active, all quadrants, Palpation: soft, in all quadrants, mild abdominal tenderness, in the right upper quadrant and left lower quadrant, rebound tenderness, is not appreciated, involuntary guarding, is not appreciated. 23:10 Back: pain, that is mild, of the right mid back, ROM is normal. Vital Signs: 22:35 BP 114 / 72; Pulse 69; Resp 17 S; Temp 98.1(O); Pulse Ox 99% on R/A; Weight 69.85 kg cc3 (R); Height 5 ft. 3 in. (160.02 cm) (R); Pain 8/10; 23:45 BP 107 / 77; Pulse 74; Resp 17 S; Pulse Ox 99% on R/A; cc3 03/06 00:24 BP 114 / 67; Pulse 69; Resp 16 S; Pulse Ox 98% on R/A; Pain 9/10; cc3 01:07 BP 109 / 74; Pulse 72; Resp 16 S; Pulse Ox 98% on R/A; cc3 01:50 BP 112 / 73; Pulse 70; Resp 15 S; Pulse Ox 98% on R/A; Pain 1/10; cc3 03/05 22:35 Body Mass Index 27.28 (69.85 kg, 160.02 cm) cc3 MDM: 06/23 22:38 Patient medically screened. cp 03/06 01:44 Data reviewed: vital signs, nurses notes, lab test result(s), radiologic studies, CT cp scan, and as a result, I will discharge patient. Counseling: I had a detailed discussion with the patient and/or guardian regarding: the historical points, exam findings, and any diagnostic results supporting the discharge/admit diagnosis, lab results, radiology results, the need for outpatient follow up, a building drafting officer, to return to the emergency department if symptoms worsen or persist or if there are any questions or concerns that arise at home. Response to treatment: the patient's symptoms have mildly improved after treatment. 03/05 23:30 Order name: Basic Metabolic Panel; Complete Time: 00:19 EDKY 03/05 23:08 Order name: Abdomen EDKY 03/05 23:30 Order name: Liver (Hepatic) Function; Complete Time: 00:19 EDKY 03/06 01:08 Interpretation: Normal except: ALK 192; GLOB 4.4; A/G 0.8. 03/05 23:30 Order name: Lipase; Complete Time: 00:19 EDKY 03/05 23:30 Order name: Creatinine (Radiology Only); Complete Time: 00:19 EDKY 03/05 23:30 Order name: CBC with Automated Diff; Complete Time: 00:19 EDKY 03/05 23:41 Order name: Urine Dipstick--Ancillary (enter results); Complete Time: 01:08 cm6 03/05 22:49 Order name: IV Saline Lock; Complete Time: 23:26 cp 03/05 22:49 Order name: Labs collected and sent; Complete Time: 23:26 cp 03/05 22:49 Order name: Urine Dipstick-Ancillary (obtain specimen); Complete Time: 23:52 cp Administered Medications: 01:15 Drug: TORadol 30 mg Route: IVP; Site: left antecubital; cc3 01:50 Follow up: Response: No adverse reaction; Pain is decreased; NRS 1/10 cc3 01:15 Drug: NS 0.9% 1000 ml Route: IV; Rate: 1 bolus; Site: left antecubital; cc3 01:50 Follow up: Response: No adverse reaction; IV Status: Completed infusion; IV Intake: cc3 1000ml 01:20 Drug: Zofran 4 mg Route: IVP; Site: left antecubital; cc3 01:50 Follow up: Response: No adverse reaction; Nausea is decreased cc3 Disposition: 09:33 Co-signature as Attending Physician, Yordan Pavon MD I agree with the assessment and wa plan of care. Disposition: 03/06/19 01:46 Discharged to Home. Impression: Unspecified abdominal pain, Constipation. - Condition is Stable. - Discharge Instructions: Abdominal Pain, Adult, Constipation, Adult. - Medication Reconciliation Form, Thank You Letter, Antibiotic Education, Prescription Opioid Use form. - Follow up: Yordan Lozada MD; When: 2 - 3 days; Reason: Recheck today's complaints. - Problem is new. - Symptoms have improved. - Notes: recommend over the counter magnesium citrate and enemas. Take colace or miralax as directed daily Signatures: Dispatcher [employer] EDMS Irving Restrepo PA PA cp Appiah, William, MD MD wa Cordel, Charlene cc3 Corrections: (The following items were deleted from the chart) 00:53 00:46 BASIC METABOLIC PANEL+C.LAB.BRZ ordered. EDMS EDMS 00:53 00:46 HEPATIC FUNCTION+C.LAB.BRZ ordered. EDMS EDMS 00:53 00:46 LIPASE+C.LAB.BRZ ordered. EDMS EDMS 00:54 00:46 CBC+H.LAB.BRZ ordered. EDMS EDMS 00:54 00:46 Creatinine for Radiology+C.LAB.BRZ ordered. EDMS EDMS 01:56 01:46 03/06/2019 01:46 Discharged to Home. Impression: Unspecified abdominal pain; cc3 Constipation. Condition is Stable. Forms are Medication Reconciliation Form, Thank You Letter, Antibiotic Education, Prescription Opioid Use. Follow up: Yordan Lozada; When: 2 - 3 days; Reason: Recheck today's complaints. Problem is new. Symptoms have improved. cp
--- NOTE | 2019-03-06 11:03 | RAD REPORT ---
EXAM DESCRIPTION: CT Abdomen and Pelvis With Intravenous Contrast CLINICAL HISTORY: The patient is 38 years old and is Female; RUQ, LLQ abdominal pain, constipation TECHNIQUE: Axial computed tomography images of the abdomen and pelvis with intravenous contrast. S agittal and coronal reformatted images were created and reviewed. This CT exam was performed using one or more of the following dose reduction techniques: automated exposure control, adjustment of t he mA and/or kV according to patient size, and/or use of iterative reconstruction technique. COMPARISON: No relevant prior studies available. FINDINGS: LUNG BASES: Unremarkable. No mass. No consolidation. ABDOMEN: LIVER: Unremarkable. No mass. GALLBLADDER AND BILE DUCTS: No calcified stones. No ductal dilation. PANCREAS: No ductal dilation. No mass. SPLEEN: Unremarkable. ADRENALS: Unremarkable. No mass. KIDNEYS AND URETERS: Unremarkable. No solid mass. No hydronephrosis. STOMACH AND BOWEL: The stomach is distended with food contents. The small bowel is normal in jovana iber. Stool is present throughout the colon. There is no mucosal thickening or evidence of bowel obst ruction. PELVIS: APPENDIX: The appendix is normal in caliber without surrounding inflammation. BLADDER: The bladder is well distended. REPRODUCTIVE: The patient is status post hysterectomy. ABDOMEN and PELVIS: INTRAPERITONEAL SPACE: Unremarkable. No free air. No significant fluid collection. BONES/JOINTS: No acute fracture. SOFT TISSUES: A small fat-containing umbilical hernia is present. VASCULATURE: Unremarkable. No abdominal aortic aneurysm. LYMPH NODES: Unremarkable. No enlarged lymph nodes. IMPRESSION: 1. Moderate stool burden without obstruction. 2. Normal appendix. No renal or ureteral calculi. Electronically signed by: Cami Sosa MD 03/06/2019 1:12 AM CDT Due to temporary technical issues with the PACS/Fluency reporting system, reports are being signed by the in house radiologist as a courtesy to ensure prompt reporting. The interpreting radiologist is f ully responsible for the content of the report.
== END 2019-03-06 01:56 | disposition home or self-care (01) ==
LOC: ER 22:21
DX: K59.00 Constipation, unspecified (principal)
CPT/HCPCS: 36415; 74177; 80048; 80076; 81003; 83690; 85025; 96361; 96374; 96375; 99284; J2405; J7030; Q9967

== ENCOUNTER 2020-01-14 23:26 | Emergency (ER) | payer BC, SELFPAY ==
--- OUTSIDE RECORDS SUMMARY | 2020-01-14 23:29 | XMS REPORT ---
:1980 Author Organization [facility] Address [address] [place] [address] Dr. Garcia [address] [place] [id number] Care Team Providers Name Role Phone ESTELA PARIKH M.D. 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 Anxiety Anxiety Problem Active Costal Costal Problem Active chondritis Chondritis Fatigue Fatigue Problem Active Headache Headache Problem Active Cervical Cervical Problem Active prolapse prolapse Rectocele Rectocele Problem Active Inadequate Inadequate Problem Active pelvic pelvic muscles muscles Abnormal Abnormal Problem Active vaginal vaginal bleeding bleeding Cervicitis Cervicitis Problem Active Pelvic pain Pelvic pain Problem Active Sexual Sexual Problem Active dysfunction dysfunction in females in females Dyspareunia Dyspareunia Problem Active , female , female History of History of Problem Resolve Anxiety and Anxiety and d depression depression Allergies, Adverse Reactions, Alerts This patient has no known allergies or adverse reactions. Medications Ordered Filled Start Stop Current Ordering Indication Dosage Frequency Signature Comments Components Medication Medication Date Date Medication? Clinician (SIG) Name Name acetaminoph acetaminoph No acetamin op en 300 en 300 hen 300 mg-codeine mg-codeine mg-codeine 30 mg 30 mg 30 mg tablet tablet tablet amoxicillin amoxicillin No amoxicil li 500 500 n 500 mg-potassiu mg-potassiu mg-potas si m m um clavulanate clavulanate clavulan at 125 mg 125 mg e 125 mg tablet tablet tablet amoxicillin amoxicillin No amoxicil li 875 875 n 875 mg-potassiu mg-potassiu mg-potas si m m um clavulanate clavulanate clavulan at 125 mg 125 mg e 125 mg tablet tablet tablet Centrum Centrum No Centrum MultiGummie MultiGummie MultiGum mi s s es diazepam 5 diazepam 5 No diazepam 5 mg tablet mg tablet mg tablet diclofenac diclofenac No diclofenac 1 % topical 1 % topical 1 % gel gel topical gel diclofenac diclofenac No diclofenac potassium potassium potassium 50 mg 50 mg 50 mg tablet tablet tablet Enskyce Enskyce No Enskyce 0.15 0.15 0.15 mg-0.03 mg mg-0.03 mg mg-0.03 mg tablet Take tablet Take tablet 1 tablet 1 tablet Take 1 every day every day tablet by oral by oral every day route. route. by oral route. fluconazole fluconazole No fluconaz ol 150 mg 150 mg e 150 mg tablet tablet tablet lorazepam lorazepam No lorazepam 0.5 mg 0.5 mg 0.5 mg tablet Take tablet Take tablet 1 tablet 1 tablet Take 1 twice a day twice a day tablet by oral by oral twice a route as route as day by needed. needed. oral route as needed. naproxen naproxen No naproxen 500 mg 500 mg 500 mg tablet tablet tablet naproxen naproxen No naproxen sodium 550 sodium 550 sodium 550 mg tablet mg tablet mg tablet ondansetron ondansetron No ondanset ro 4 mg 4 mg n 4 mg disintegrat disintegrat disinteg ra ing tablet ing tablet ting tablet rifampin rifampin No rifampin 300 mg 300 mg 300 mg capsule capsule capsule sulfamethox sulfamethox No sulfamet ho azole 800 azole 800 xazole 800 mg-trimetho mg-trimetho mg-trime th prim 160 mg prim 160 mg oprim 16 0 tablet tablet mg tablet sumatriptan sumatriptan No sumatrip ta 50 mg 50 mg n 50 mg tablet tablet tablet tramadol 50 tramadol 50 No tramadol mg tablet mg tablet 50 mg Take 1 Take 1 tablet tablet 3 tablet 3 Take 1 times a day times a day tablet 3 by oral by oral times a route as route as day by needed. needed. oral route as needed. Vital Signs Vital Name Observation Time Observation Value Comments BP Systolic 2017-07-29 09:01:00 119 mm[Hg] Location: [facility]; Position: Sitting BP Diastolic 2017-07-29 09:01:00 76 mm[Hg] Location: [facility]; Position: Sitting Height 2017-07-29 09:01:00 63 [in_us] Weight 2017-07-29 09:01:00 127.25 [lb_av] Temperature 2017-07-29 09:01:00 98 [degF] Method: Oral Heart Rate 2017-07-29 09:01:00 68 /min Location: [facility]; Procedures and Interventions Procedure Date / Time Performed Performing Clinici an Mw Therapy for Breast Tumor Tubal Ligation History of tubal ligation Encounters Start End Encounter Admission Attending Care Care Encounter Date/Time Date/Time Type Type Clinicians Facility Department ID 2019-12-26 2019-12-26 [place]nie [place] - [id number] 00:00:00 00:00:00 Chadwick Tiwari MD: [address] [facility] [address], [place] [address], Ph. [phone] 2019-04-26 2019-04-26 Emergency [facility] [id number] 21:54:00 21:54:00 2018-09-08 2018-09-08 Emergency [facility] [id number] 09:31:44 09:31:44 2018-09-08 2018-09-08 Emergency [facility] [id number] 06:20:56 06:20:56 2017-07-29 2017-07-29 Appointment [facility] [place] [id number] 08:30:00 08:30:00 ; ESTELA PARIKH [place], M.D. [facility] Results Test Description Test Time Test Comments Text Results Atomic Results Result Comments CT ABDOMEN AND PELVIS W/WO CLINICAL INDIC ATION: R10.2 Pelvic and perineal painMODALITY: [employer] ia [address] (Iterative dose reduction te chnique is used).TECHNIQUE: Helical im aging of the abdomen and pelvis is performed. Oral co ntrast is administered. 95 mls Isovue are administe red IV. Imaging performed prior to and after administration of contrast.Computed Tomography Dose Index: 19.6 mGy. IMPRESSION:Unremarkable CT. No acute abnormality. No evidence of metastatic disea se.FINDINGS:COMPARISON: NoneThe lung bases are mike r. No pleural disease is present.The liver is normal in size and contour with no focal attenuation defect suspicious for replacement lesion or abnorm al contrast enhancement. Hepatic veins, portal venous system and biliary tree are normal. The gallbladder is normal in appearance.Stomach and duode num are unremarkable. The spleen is normal in size and contour. No pancreatic mass, pancreatic duct dilatation or peripancreatic edema is visi ble.Adrenal glands and kidneys are normal. There ar e no renal calculi, hydronephrosis or masses not ed.Neither retrocrural nor retroperitoneal adenopat hy is present. Vascular structures are within normal limits.No significant bowel pathology is noted. No rmal appendix. Omentum and mesentery are unremarkab le.Abdominal wall is intact.No ascites visualized .No lytic or blastic osseous lesions are observed .The urinary bladder is unremarkable.The uterus is r etroverted. The adnexa are within normal limits. No free fluid is present in the pelvis.No pelvic or i nguinal lymphadenopathy is evident.PQRS 436: [id number] ( For official use only.)
--- OUTSIDE RECORDS SUMMARY | 2020-01-14 23:30 | XMS REPORT | Continuity of Care Document ---
:1980 Author Organization [facility] Address [address] [place] [address] Phone Unavailable Care Team Providers Name Role Phone Williams SANCHEZ NP Primary Care Physician Insurance Providers Guarantor Maria Victoria Jain Address [address] [place] [address] Email NONE Payer [facility] Policy Number [id number] Subscriber's Name Rafy Jain Relationship Spouse Group Number [id number] Group Name NA Advance Directives Directive Response Recorded Date/Time Advance Directives No 05/27/16 8:01pm Advance Directive on File No 04/12/19 11:59 pm Directive to Physicians/Living Will No 05/14 12/27 8:01pm Health Care Proxy No 05/27/16 8:01pm Name of Surrogate/Decision Maker N/A 9 11:53pm Organ Donor No 05/27/16 8:01pm Medical Power of Probation Worker No 05/27/16 8:01p m Patient/Family Given Education Material Y - SIGNED 9...AG 04/12/19 11:59pm R/T Directives? Chief Complaint and Reason for Visit Chief Complaint Abdominal/GI/Nausea/Vomiting Reason for Visit Sciatica Hip pain, left Problems Medical Problem Onset Date Status Abdominal [...] Acute Cellulitis Unknown Acute Dizziness Unknown Acute Hip pain, left Unknown Acute Nausea Unknown Acute Pain in pelvis Unknown Acute Sciatica Unknown Acute Urinary tract infectious disease Unknown Acute Medications Current Home Medications Medication Dose Units Route Directions Days Qty Instructio ns Start Date Lorazepam 1 Tab ORAL Twice [...] Onset Date Status Hx Physical Abuse No 04/12/2019 11:59pm Not Applicable No t Applicable Smoking Status Start Date Stop Date Never smoker Hospital Discharge Instructions No hospital discharge instruction information available. Plan of Care Discharge Date 04/13/19 1:33am Instructions/Education Provided Hip Pain Sciatica Forms Provided Portal Welcome Letter Prescriptions See Medication Section Referrals SEKOU SANCHEZ NP Address: [address] [place] [address] [address] [place], [place] [address] JAM COOLEY MD Address: [address] [place] [address] [address] [place] [address] Additional Instructions/Education CALL ORTHOPEDIST FOR FOLLOW UP AND FURTHER WORK UP NAPROSYN TWICE A DAY WITH FO OD TILL SEEN FLEXERIL - ADD FOR PAIN OR S PASM TO MAX OF EVERY 8 HOURS Functional Status No functional status information available. Allergies, Adverse Reactions, Alerts Allergen Type Severity Reaction Status Last Updated No Known Allergies Allergy Unknown Active Immunizations No immunization information available. Vital Signs Acute Vital Signs Vital Response Date/Time Blood Pressure 110/62 mm Hg 04/13/2019 1:28am Pulse Pulse Rate (adult) 75 beats per minute (60 - 100) 019 1:28am Respiratory Rate 16 breaths per minute (10 - 24) 04/13/20 19 1:28am Temperature Source Oral 04/13/2019 1:28am Height 5 ft 3 in 04/12/2019 11:59pm Weight 147 lb 04/12/2019 11:59pm Body Mass Index 26.0 kg/m^2 04/12/2019 11:59pm Results Laboratory Results Test Name Result Units [...] CLEAR 02/14/2019 02/14/2019 7:38pm 7:43pm Urine Glucose (UA) NEGATIVE NEGATIVE 02/14/2019 02/15/20 19 7:38pm 7:43pm Urine Bilirubin NEGATIVE NEGATIVE 02/14/2019 02/14/2019 7:38pm 7:43pm Urine Ketones NEGATIVE NEGATIVE 02/14/2019 02/14/2019 7:38pm 7:43pm Urine Specific 1.023 1.003-1.030 02/14/2019 02/14/2019 [place] 7:38pm 7:43pm Urine Blood 1+ (SMALL) H [...] Urine Bacteria SMALL(1+) /hpf None Detect 02/14/2019 02/15/20 19 7:38pm 7:48pm Urine Casts 2-5 /lpf None Detect 02/14/2019 02/14/2019 7:38pm 7:48pm Urine Culture NO 02/14/2019 02/14/2019 [place] 7:38pm 7:48pm Random Glucose 81 mg/dL 74-106 02/14/2019 02/14/2019 7:38pm 8:09pm Blood Urea 12 mg/dL 6-02/14/2019 02/14/2019 [place] 7:38pm 8:09pm Serum Osmolality 280 280-300 02/14/2019 02/14/2019 7:38pm 8:09pm Creatinine 0.7 mg/dL 0.50-0.90 02/14/2019 02/14/2019 7:38pm 8:09pm Glomerular > 60.00 02/14/2019 02/14/2019 GFR RES ULTS ARE REPORTED IN mL/min/1.73m2. Filtration Rate 7:38pm 8:09pm Calc Normal GFR: >60m L/min Moderately decre ased GFR: 30-59 mL/min Severely decreas ed GFR: 15-29 mL/min Kidney Failure ( or Dialysis): <15 mL/min The calculated e GFR is not valid for patients younger than 18 years or olde r than 75 years. BUN/Creatinine 17.1 12-02/14/2019 02/14/2019 Ratio 7:38pm 8:09pm Sodium Level 141 mmol/L 135-145 02/14/2019 02/14/2019 7:38pm 8:09pm Potassium Level 4.0 mmol/L 3.5-5.2 02/14/2019 02/14/2019 7:38pm 8:09pm Chloride Level 103 mmol/L 98-108 02/14/2019 02/14/2019 7:38pm 8:09pm Carbon Dioxide 27 mmol/L 21-32 02/14/2019 02/14/2019 Level 7:38pm 8:09pm Anion Gap 15.0 mEq/L 12-02/14/2019 02/14/2019 7:38pm 8:09pm Calcium Level 9.4 mg/dL [...] 7:38pm 8:09pm Procedures Procedure Status Date Provider(s) CT ABD & PELV W/CONTRAST Completed 02/14/19 EMERGENCY DEPT VISIT Completed 02/14/19 COMPLETE CBC W/AUTO DIFF WBC Completed 02/14/19 URINALYSIS AUTO W/SCOPE Completed 02/14/19 ROUTINE VENIPUNCTURE Completed 02/14/19 COMPREHEN METABOLIC PANEL Completed 02/14/19 Computed tomography of abdomen and pelvis with Completed 0 02/14/19 JODY SANDRA PATHOLOGY MANAGER contrast X-ray of lumbar spine, AP and lateral views Completed 10/01 ZEE LOPEZ MD XR hip, oblique view Completed 04/13/19 VANCE LOPEZ MD Encounters Encounter Location Arrival/Admit Date Discharge/Depart Date Attending Provider Departed [place] 04/12/19 11:53pm 04/13/19 1:33am ZEE LOPEZ [facility] Departed [place] 02/14/19 7:07pm 02/14/19 11:12pm SIVA [facility] Recent Diagnosis
--- OUTSIDE RECORDS SUMMARY | 2020-01-14 23:30 | XMS REPORT | Continuity of Care Document ---
:1980 Author Organization [facility] Address [address] [place] [address] Phone Unavailable Care Team Providers Name Role Phone Williams SANCHEZ FURNITURE INSTALLER Primary Care Physician Insurance Providers Guarantor Maria Victoria Jain Address [address] [place] [address] Email NONE Payer [facility] Policy Number [id number] Subscriber's Name Rafy Jain Relationship Spouse Group Number [id number] Group Name NA Advance Directives Directive Response Recorded Date/Time Advance Directives No 05/27/16 8:01pm Advance Directive on File No 05/22/19 2:46p m Directive to Physicians/Living Will No 05/14 12/27 8:01pm Health Care Proxy No 05/27/16 8:01pm Organ Donor No 05/27/16 8:01pm Medical Power of Application Manager No 05/27/16 8:01p m Chief Complaint and Reason for Visit Chief Complaint General Complaint Reason for Visit 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 Allergic reaction to food Problems Medical Problem Onset Date Status Abdominal [...] Acute Abscess of groin, right Unknown Acute Allergic reaction to food Unknown Acute 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 Unknown Acute Ambien accidental overdose Unknown Acute Anemia Unknown Acute Cellulitis Unknown Acute Dizziness Unknown Acute Hip pain, left Unknown Acute Nausea Unknown Acute Pain in pelvis Unknown Acute Sciatica Unknown Acute Urinary tract infectious disease Unknown Acute Medications Current Home Medications Medication Dose Units Route Directions Days Qty Instructio ns Start Date Lorazepam (Lorazepam 1 Tab ORAL Twice Daily As 60 0.5 Mg) 0.5 Mg Tab Needed Tablet Methylprednisolone 1 Pkt ORAL As Directed 1 Packet FOLLOW (Medrol Dosepak *) 1 for INS TRUCTIONS 9 Pkt Pkt Inflammation ON DOSEPAK Naproxen (Naprosyn 1 Tab ORAL Twice A Day 60 500 Mg*) 500 Mg Tab Tablet Tramadol Hcl (Ultram 50 Mg ORAL Every 4 Hrs As *) 50 Mg Tab Needed Past Home Medications Medication Directions Ordered Status Amoxicillin 500 Mg Tab, 1 Tab Oral Twice A Day Discontinued Social History Social History Problem Response Recorded Date/Time Onset Date Status Hx Physical Abuse No 05/22/2019 2:46pm Not Applicable Not Applicable Smoking Status Start Date Stop Date Never smoker Hospital Discharge Instructions No hospital discharge instruction information available. Plan of Care Discharge Date 05/22/19 4:54pm Instructions/Education Provided Allergies, Adult, Easy -to-Read Forms Provided Prescription Opioid Use Portal Welcome Letter Prescriptions See Medication Section Referrals SEKOU SANCHEZ NP Address: [address] [place] [address] [place] [address] Additional Instructions/Education MEDROL DOSE JESUS R x. TAKE YOUR BENADRYL 1 TABLET EVERY 8hrs NEEDED FOR ALLERGIC REATION. SEE YOUR PCP FOR RECHECK IN 2-3 DAYS Functional Status No functional status information available. Allergies, Adverse Reactions, Alerts Allergen Type Severity Reaction Status Last Updated No Known Allergies Allergy Unknown Active Immunizations No immunization information available. Vital Signs Acute Vital Signs Vital Response Date/Time Blood Pressure 124/74 mm Hg 05/22/2019 4:53pm Pulse Pulse Rate (adult) 70 beats per minute (60 - 100) 019 4:53pm Respiratory Rate 18 breaths per minute (10 - 24) 05/22/20 19 4:53pm Temperature Source Oral 05/22/2019 4:53pm Results No relevant diagnostic test, laboratory data and/or discharge summary information available. Procedures Procedure Status Date Provider(s) EMERGENCY DEPT VISIT Completed 04/12/19 THER/PROPH/DIAG INJ SC/IM Completed 04/12/19 X-RAY EXAM HIP UNI 2-3 VIEWS Completed 04/12/19 X-RAY EXAM L-S SPINE 2/3 VWS Completed 04/12/19 X-ray of lumbar spine, AP and lateral views Completed 10/01 ZEE LOPEZ MD XR hip, oblique view Completed 04/13/19 VANCE LOPEZ MD Encounters Encounter Location Arrival/Admit Date Discharge/Depart Date Attending Provider Departed [place] 05/22/19 2:43pm 05/22/19 4:54pm AMADO WOLFE MD [facility] Departed [place] 04/12/19 11:53pm 04/13/19 1:33am ZEE LOPEZ [facility] Recent Diagnosis
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
--- OUTSIDE RECORDS SUMMARY | 2020-01-14 23:31 | XMS REPORT | Encounter Summary ---
:1980 Author Reason for Visit None recorded. Instructions 1. Right upper quadrant pain Discussion Note: None recorded.Patient educational handouts: No information available. Plan of Care Reminders Provider Appointments None recorded. Lab None recorded. Referral None recorded. Procedures None recorded. Surgeries None recorded. Imaging None recorded. Medications Name Start Date acetaminophen 300 mg-codeine 30 mg tablet amoxicillin 500 mg-potassium clavulanate 125 mg tablet amoxicillin 875 mg-potassium clavulanate 125 mg tablet Centrum MultiGummies diazepam 5 mg tablet diclofenac 1 % topical gel diclofenac potassium 50 mg tablet Enskyce 0.15 mg-0.03 mg tablet Take 1 tablet every day by oral route. fluconazole 150 mg tablet lorazepam 0.5 mg tablet Take 1 tablet twice a day by oral route as needed. naproxen 500 mg tablet naproxen sodium 550 mg tablet ondansetron 4 mg disintegrating tablet rifampin 300 mg capsule sulfamethoxazole 800 mg-trimethoprim 160 mg tablet sumatriptan 50 mg tablet tramadol 50 mg tablet Take 1 tablet 3 times a day by oral route as needed. Medications Administered None recorded. Vitals None recorded. Results Lab Results None recorded. Allergies Code Code System Name Reaction Severity Status Onset NKDA Problems Name Status Onset Date Source Benign Tumor of Breast Active Encounter Anxiety Active Encounter Costal Chondritis Active Encounter Fatigue Active Encounter Headache Active Encounter Procedures Date Name Performed by Therapy for Breast Tumor Information not available Tubal Ligation Information not avai lable Vaccine List None recorded. Social History Tobacco Smoking Status Never Smoker Past Encounters 12/26/2019 Right Upper Quadrant Pain Ronnie Tiwari MD: [address] [place] [address] [address], [place] [address], Ph. [phone] History of Present Illness Note: cc: RUQ pain<div>HPI: 39 yo female was seen in ED in September for RUQ pain but workup negative - CT and Labs. Has recurrent RUQ pain that lasts about 10 to 15 mins but on 12/22 pain would not go away and went to ED in [place]. Was told it was her gallbladder, placed on cipro and told to contacta surgeon. Thinks she had another CT.</div><div>PMH: neg</div><div>PSH: [id number], spontaneous ptx 10 to 11 yrs ago on the left</div><div>nkda</div><div>tob neg</div><div>etoh neg</div><div>ros ow neg per pt</div> Review of Systems General Surgery ROS Reported By: Patient Constitutional: Constitutional: no fever, no night sweats, no significant weight gain, no significant weight loss, no exercise intolerance Eyes: Eyes: no dry eyes, no irrita tion, no vision change ENMT: Ears: no difficulty hearing, no ear pain. Nose: no frequent nosebleeds, no nose/sinus pr oblems. Mouth/Throat: no sore throat, no bleeding gums, no snoring , no dry mouth, no mouth ulcers, no oral abnormalities, no teeth problems, No Post Nasal Dripping, Constantly clearing the thro at, hiccups, itching throat, (normal) weak voice: constant Respiratory: Respiratory: no cough, no wh eezing, no shortness of breath, no coughing up blood Cardiovascular: Cardiovascular: no chest tash n, no arm pain on exertion, no shortness of breath when wal dwayne, no shortness of breath when lying down, no palpitations, no kn own heart murmur Gastrointestinal: Gastrointestinal: no abdomin al pain, no vomiting, normal appetite, no diarrhea, not vomiting bl ood Genitourinary: Genitourinary: no incontinen ce, no difficulty urinating, no hematuria, no increased freq uency Musculoskeletal: Musculoskeletal: no muscle a ches, no muscle weakness, no arthralgias/joint pain, no b ack pain, no swelling in the extremities Integumentary: Skin: no abnormal mole, no j aundice, no rashes Neurologic: Neurologic: no loss of consc iousness, no weakness, no numbness, no seizures, no dizziness, no h eadaches Physical Exam None recorded.
--- OUTSIDE RECORDS SUMMARY | 2020-01-14 23:31 | XMS REPORT | Continuity of Care Document ---
:1980 Author Organization [facility] Address [address] [place] [address] Allergies, Adverse Reactions, Alerts Allergen Type Severity [...] Resolve d Procedures Procedure Date Performed Status EMERGENCY DEPT VISIT September 03, 2019 completed X-RAY EXAM CHEST 1 VIEW September 03, 2019 completed COMPLETE CBC W/AUTO DIFF WBC September 03, 2019 completed CREATINE MB FRACTION September 03, 2019 completed CREATINE MB FRACTION September 03, 2019 completed ASSAY OF CK (CPK) September 03, 2019 completed ASSAY OF CK (CPK) September 03, 2019 completed ASSAY OF MYOGLOBIN September 03, 2019 completed PROTHROMBIN TIME September 03, 2019 completed THROMBOPLASTIN TIME PARTIAL September 03, 2019 completed ROUTINE VENIPUNCTURE September 03, 2019 completed ASSAY OF TROPONIN QUANT September 03, 2019 completed ASSAY OF TROPONIN QUANT September 03, 2019 completed COMPREHEN METABOLIC PANEL September 03, 2019 completed ASSAY OF NATRIURETIC PEPTIDE September 03, 2019 completed ELECTROCARDIOGRAM TRACING September 03, 2019 completed X-ray of chest, single view September 03, 2019 completed Computed tomography of abdomen and pelvis with contrast Grayson holliday 2019 completed Relevant Diagnostic Tests and/or Laboratory Data Laboratory Results Test Date/Time Result Interpretation Reference Result Comment Performing Range Site White Blood Ina 6.4 4.0-11.5 [facility], [address] Count 2019 8:45[facility] [place] [address] Red Blood Count Ina 4.34 3.80-5.20 [facility] , [address] 2019 8:45[facility] [place] [address] Hemoglobin Ina 12.7 10.5-15.7 [facility], [address] 2019 8:45[facility] [place] [address] Hematocrit Ina 38.2 34.0-50.0 [facility], [address] 2019 8:[address] [place] [address] T X [address] Mean Ina 88.0 86-100 [facility], [address] Corpuscular 2019 Volume 8:45[facility] [place] [address] Mean Ina 29.3 26.2-33.4 [facility], [address] Corpuscular 2019 Hemoglobin 8:[address] [place] [address] [place] [address] Mean Ina 33.2 30-34 [facility], [address] Corpuscular 2019 Hemoglobin 8:[address] [place] [address] [place] [address] Concent Red Cell Ina 11.7 12.0-15.5 [facility], [address] Distribution 2019 Width 8:45[facility] [place] [address] Platelet Count September 254 165-450 [facility], [address] 2019 8:45[facility] [place] [address] Mean Platelet Ina 9.7 9.4-12.6 [facility], [address] Volume 2019 8:45[facility] [place] [address] Neutrophils (%) September 57.9 44.4-80.1 [facility] , [address] (Auto) 2019 8:[address] [place] [address] [place] X [address] Immature Ina 0.2 0.0-0.4 [facility], [address] Granulocyte % 2019 (Auto) 8:45[facility] [place] [address] Lymphocytes (%) Ina 33.1 10.0-50.0 [facility] , [address] (Auto) 2019 8:45am [place] [address] Monocytes (%) Ina 6.9 3.6-12.0 [facility], [address] (Auto) 2019 8:45am [place] [address] Eosinophils (%) September 1.3 0.0-5.4 [facility] , [address] (Auto) 2019 8:45am [place] [address] Basophils (%) Ina 0.6 0.1-1.2 [facility], [address] (Auto) 2019 8:45am [place] [address] Neutrophils # Ina 3.70 1.56-6.13 [facility], [address] (Auto) 2019 8:45am [place] [address] Absolute Ina 0.0 0.0-0.03 [facility], [address] [facility] [address] Immature 2019 Granulocyte 8:45am [place] [address] (auto Lymphocytes # Ina 2.1 1.18-3.74 [facility], [address] [facility] [facility] [address] (Auto) 2019 8:45am [place] [address] Monocytes # Ina 0.44 0.24-0.86 [facility], [address] (Auto) 2019 8:45am [place] [address] Eosinophils # Ina 0.08 0.04-0.36 [facility], [address] (Auto) 2019 8:45am [place] [address] Basophils # Ina 0.04 0.01-0.08 [facility], [address] (Auto) 2019 8:45am [place] [address] Nucleated Red Ina 0 0-0.2 [facility], [address] Blood Cells % 2019 8:45am [place] [address] Nucleated Red Ina 0 0 [facility], [address] Blood Cells # 2019 8:45am [place] [address] Prothrombin Vick 10.0 10.3-12.3 THERAPEUTIC [facility], [address] Time 2018 LEVEL: 1.5 to 3:18pm 1.9 [place] [address] normal range of PT Prothromb Time August 0.92 Recommended [facility], [address] International 2018 therapeutic Ratio 3:18pm [place] [address] patients receiving warfarin (coumadin) therapy: INR is 2.0 to 3.0Recommended range for patients with mechanical prosthetic heart valves: INR is 2.5 to 3.5 Activated Vick 29.6 22.5-37.0 [facility], Partial 2018 Thromboplast 3:18pm [place] [address] Time Urine Color September LT. [facility], 10 4 2019 YELLOW 8:47am [place] [address] Urine Ina CLEAR CLEAR [facility], Appearance 2019 8:47am [place] [address] Urine Glucose September NEGATIVE NEGATIVE [facility], (UA) 2019 8:47am [place] [address] Urine Bilirubin Ina NEGATIVE NEGATIVE [facility] , 2019 8:47am [place] [address] Urine Ketones September NEGATIVE NEGATIVE [facility], 2019 8:[address] [place] [address] T X [address] Urine Specific Ina 1.025 1.003-1.03 [facility] , [place] 2019 0 8:47am [place] [address] Urine Blood September MODERATE NEGATIVE [facility], 10 4 2019 8:47am [place] [address] Urine pH September 6.000 5-9 [facility], 2019 8:47am [place] [address] Urine Protein Ina NEGATIVE NEGATIVE [facility], 2019 8:[address] [place] [address] T X [address]288 Urine Ina 0.2 0.2-1.0 [facility], Urobilinogen 2019 8:47am [place] [address] Urine Nitrate Ina NEGATIVE NEGATIVE [facility], 2019 8:47am [place] [address] Urine Leukocyte September 1+ SMALL NEGATIVE [facility] , Esterase 2019 8:47am [place] [address] Urine RBC September 0-3 0-5 [facility], 2019 8:47am [place] [address] Urine WBC September 3-4 0-5 [facility], 2019 8:[address] [place] [address] T X [address] Urine Ina 11-25 0-5 [facility], Epithelial 2019 Cells 8:47am [facility] X 06016 Urine Bacteria Ina SMALL None [facility], [address] 2019 (1+) Detect 8:47am [facility] X 73518 Urine Culture Ina NO. >10 EPITHELIAL M [facility], [address] Reflexed 2019 CONTAMINA CELLS/HPF. 8:47am [place]. INDICATIVE [place] [address] CONTAMINATED URINE.CULTURE WILL NOT BE PERFORMED. PLEASE RECOLLECT IF CULTURE IS DEEMED NECESSARY. Random Glucose September 98 74-106 [facility], [address] 2019 8:45am [place] [address] Blood Urea September 9 6-20 [facility], [address] Nitrogen 2019 8:45am [facility] X 33560 Serum September 280 280-300 [facility], [address] Osmolality 2019 8:45am [place] [address] Creatinine September 0.7 0.50-0.90 [facility], [address] 2019 8:45am [facility] X 71441 Glomerular Ina > 60.00 GFR RESULTS ARE [facility], [address] Filtration Rate 2019 REPORTED IN Calc 8:45am mL/min/1.73m2.N [facility] [address] ormal GFR: >60mL/minModera tely decreased GFR: 30-59 mL/minSeverely decreased GFR: 15-29 mL/minKidney Failure (or Dialysis): <15 mL/minThe calculated eGFR is not valid for patients younger than 18 years or older than 75 years. BUN/Creatinine September 12.9 12-20 [facility], [address] Ratio 2019 8:45am [facility] X 83024 Sodium Level September 141 135-145 [facility], 1 04 2019 8:45am [facility] X 28953 Potassium Level September 4.1 3.5-5.2 [facility] , [address] 2019 8:45am [facility] X 32514 Chloride Level September 103 98-108 [facility], [address] 2019 8:45am [facility] X 90537 Carbon Dioxide September 25 21-32 [facility], [address] Level 2019 8:45am [facility] X 51236 Anion Gap September 17.1 12-20 [facility], [address] 2019 8:45am [facility] X 08817 Calcium Level Ina 9.6 8.6-10.0 [facility], [address] [facility] 2019 8:45am [place] [address] Total Protein September 7.7 6.6-8.7 [facility], [address] [facility] 2019 8:45am [place] [address] Albumin Ina 4.3 3.5-5.2 [facility], [address] [facility] 2019 8:45am [place] [address] Globulin Ina 3.4 [facility], [facility] 2019 8:45am [place] [address] Albumin/Globuli Ina 1.3 >1.0 [facility] , [facility] n Ratio 2019 8:45am [place] [address] Total Bilirubin Ina 0.3 0.0-1.2 [facility] , [address] [facility] 2019 8:45am [place] [address] Aspartate Amino September 17 15-32 [facility] , [facility] Transf 2019 (AST/SGOT) 8:45am [place] [address] Alanine September 20 0-33 [facility], [facility] Aminotransferas 2019 e (ALT/SGPT) 8:45am [place] [address] Amylase Level September 28-100 [facility], [address] [facility] 2019 8:45am [place] [address] Lipase October 08 13-60 [facility], [facility] 2019 8:45am [place] [address] QE-Lma-W-Type August 18 0-125 [facility], [facility] Natriuretic 2018 Peptide 3:00pm [place] [address] Total Alkaline September 35-105 [facility], [facility] Phosphatase 2019 8:45am [place] [address] Creatine Kinase August 20-180 [facility] , [facility] 2018 5:40pm [place] [address] Troponin I August < 0.30 0.0-0.5 Published [facility], [address] [facility] 2018 clinical 5:40pm [place] [address] shown elevations of cTnI in patients with myocardial injury, as seen in unstable angina pectoris, cardiac contusions, and heart transplants. Elevations have also been seen in patients with rhabdomyolysis and polymyositis.El evated troponin levels point to myocardial injury, but are not necessarily indicative of an ischemic mechanism. The term MD should be used when there is evidence [...] clinical examination and other findings. Creatine Kinase August 1.3 0.0-3.6 DIAGNOSTIC [facility], [address] 2018 CITERIA: 5:40pm [facility] X 57938 [facility] RELATIVE INDEX -----SUGGESTIVE OF NON-AMI < or = 5 N/AGRAY ZONE (INCONCLUSIVE) > 5 < or = 4SUGGESTIVE OF AMI >5 > 4 Myoglobin August < 25 25-58 [facility], [address] 2018 5:40pm [facility] X 97580 Diagnostic Imaging Reports Report Dictated Date/Time Dictated By Status September 03, 2019 3:19pm MIGUELINA CASTANON MD completed Patient: MARIA VICTORIA JAIN MR#: [id number] D OB: [address] CELINA DURBIN DO Pt Status : [facility] Pt Location: [facility]/Time: 09/03/19 1450 Primary Care Physician: SEKOU SANCHEZ DRUPAL PHP DEVELOPER Technologist(s): MEENAKSHI JAIN Procedure(s): [id number] RAD/CHEST 1 VIEW Signed Examination: Single AP view of the chest . COMPARISON: None. INDICATION: Chest pain IMPRESSION: 1. Lines and Tubes: None 2. Lungs are grossly clear. No consoli dation or effusion. 3. Cardiomediastinal silhouette is norm al. Pulmonary vasculature is normal. 4. No acute bony abnormalities. Signed by: Daja Marin 09/03/2019 3:19 PM Transcribed By: Bandhappy SIGNED <electronically signed by MIGUELINA CASTANON MD> [id number] MIGUELINA CASTANON MD September 04, 2019 5:58pm ANNEMARIE CARTER MD co mpleted Patient: MARIA VICTORIA JAIN MR#: [id number] D OB: 1980 Pt Location: [facility] e/Time: 09/03/19 1450 Primary Care Physician: SEKOU SANCHEZ DRUPAL PHP DEVELOPER Signed [facility] Test Date: 2019-09-03 Pat Name: MARIA VICTORIA Song epartment: R oom: Gender: Female T echnician: SARAH : 1980 R equested By: RADHA DURBIN Order Number: [id number] R edward MD: Annemarie Carter M.D. F.A.A.C Measurements Intervals A xis Rate: 78 P : 61 CO: 140 Q RS: 63 QRSD: 98 T : 42 QT: 377 QTc: 430 Interpretive Statements Sinus rhythm Abnormal inferior Q waves Electronically Signed On 09-04-2019 17:5 8:51 [employer]NER by Annemarie Carter M.D. F.A.A.C Transcribed By: Bandhappy SIGNED <electronically signed by ANNEMARIE CARTER MD> 57 [phone] ANNEMARIE CARTER MD Health Concerns No known health concerns documented Advance Directives Advance Directive Response Recorded Date/Time Advance Directives No May 27, 2016 8:01pm Advance Directive on File No October 07, 2019 8:41am Directive to Physicians/Living Will No May 8:01pm Health Care Proxy No May 27, 2016 8:01pm Name of Surrogate/Decision Maker NA October 07, 2019 8:37am Organ Donor No May 27, 2016 8:01pm Medical Power of Audio Production Manager No May 8:01pm Chief Complaint and Reason for Visit Chief Complaint Abdominal/GI/Nausea/Vomiting Reason for Visit [id number] Encounters Encounter Location(s) Arrival/Admit Date Discharge/Depart Date Provider(s) Departed [place] October 07, 2019 October 07, 2019 [place] W[place] Emergency Room [facility] 8:36am 3:40pm DO Ctr Departed Carlos September 03, September 03, 2019 Westley DURBIN Emergency Room [place] [address] 2:43pm 7:13pm DO Ctr Assessments No Assessments Information Available Functional Status No Functional Status information available Goals No Goals Information Available Immunizations No Immunization Information Available Mental Status No Mental Status Information Available Medical Equipment No Medical Equipment Information available Insurance Providers Guarantor Maria Victoria Jain Address [address] [facility] [address] Contact Info. Home Phone: Payer Policy Id Coverage Id Subscriber's Subscriber Id Effective E xpiration Name Date Date [facility] [id number] Rafy Jain [id number] [address] Plan of Treatment LEVAQUIN 500MG 1 TAB. DAILY FOLLOW UP WITH PCP IN 2-3 DAYS Future Tests Future scheduled test information is unavailable Pending Tests Pending diagnostic test information is unavailable Future Visits Future appointment information is unavailable Referrals to Other Providers Reason for Referral Start Provider Provider Contact Provider Address Referral Date Information SEKOU SANCHEZ E Work Phone: [address] [facility] DRUPAL PHP DEVELOPER [address] [place] [phone] Future Procedures Future procedure information is unavailable Future Medications Future medication information is unavailable Patient Instructions Abdominal Pain, Adult, [id number] Urinary Tract Infection, Adult, Easy-to- Read Social History Smoking Status Status Date of Observation Never smoked tobacco (finding) October 07, 2019 8:41 am Observation Status Observation Response Date of Response Hx Physical Abuse No October 07, 2019 8 :41am Assigned Sex Female Vital Signs Vital Reading Result Collection Date/Time
[2020-01-14] MEDS ORDERED: KETOROLAC 30 MG/ML INJ ONE (23:54)
[2020-01-14] MEDS ORDERED: FAMOTIDINE 20 MG/2 ML VIAL IV ONE (23:54)
[2020-01-14] MEDS ORDERED: ONDANSETRON 4 MG/2 ML VIAL ONE (23:54)
[2020-01-15] LABS: Basophils % 0.5 % (0-1.3); Lymphocytes % 35.6 % (15.3-44.8); MPV 8.7 fL (7.6-11.3); RBC Red Blood Cell Count 4.25 M/uL (3.86-4.86)
[2020-01-15] MEDS ORDERED: NA CHLORIDE 0.9% 1,000 ML ONE (00:07)
[2020-01-15 00:11] LABS: ALT/SGPT 38 U/L (12-78); AST/SGOT 29 U/L (15-37); Albumin 3.7 g/dL (3.4-5.0); Alkaline Phosphatase 203 U/L (45-117); BUN Blood Urea Nitrogen 13 mg/dL (7-18); Bicarbonate 26 mmol/L (21-32); Bilirubin Direct < 0.1 mg/dL (0-0.2); Bilirubin Total 0.2 mg/dL (0.2-1.0); Glucose Level 85 mg/dL (74-106); Lipase 123 U/L (73-393); Potassium 3.6 mmol/L (3.5-5.1); Protein, Total 8.2 g/dL (6.4-8.2); Sodium Level 141 mmol/L (136-145)
--- NOTE | 2020-01-15 01:39 | ER ---
Nurse's Notes [facility] Name: Maria Victoria Jain Age: 39 yrs Sex: Female : 1980 Arrival Date: 01/14/2020 Time: 23:29 Bed 5 Private MD: Diagnosis: Cholelithiasis Presentation: 01/13 23:36 Chief complaint: Patient states: upper abdominal pain radiating to back that began lp1 about 2 hours ago; States diagnosed with gallstones 1 month ago at [facility], followed up but told unable to do surgery due to Coronavirus. Coronavirus screen: Proceed with normal triage. Ebola Screen: No symptoms or risks identified at this time. Initial Sepsis Screen: Does the patient meet any 2 criteria? No. Patient's initial sepsis screen is negative. Does the patient have a suspected source of infection? No. Patient's initial sepsis screen is negative. Risk Assessment: Do you want to hurt yourself or someone else? Patient reports no desire to harm self or others. Onset of symptoms was January 14, 2020. 23:36 Method Of Arrival: Ambulatory lp1 23:36 Acuity: CIRA 3 lp1 CANE FLUME WATCHMAN: 23:38 LMP N/A - Hysterectomy lp1 Historical: - Allergies: 23:38 No Known Allergies; lp1 - Home Meds: 23:38 None [Active]; lp1 - PMHx: 23:38 breast lump; Pneumothorax; thorocentesis; lp1 - PSHx: 23:38 Hysterectomy; lp1 - Immunization history:: Adult Immunizations up to date. - Social history:: Smoking status: Patient denies any tobacco usage or history of. Screenin:38 Abuse screen: Denies threats or abuse. Denies injuries from another. Nutritional lp1 screening: No deficits noted. Tuberculosis screening: No symptoms or risk factors identified. Fall Risk None identified. Assessment: 01/14 00:02 General: Appears in no apparent distress. uncomfortable, Behavior is calm, cooperative. mg2 Pain: Complains of pain in epigastrium Pain radiates to chest Pain at worst was 10 out of 10 on a pain scale. Neuro: Level of Consciousness is awake, alert, obeys commands, Oriented to person, place, time, situation. Cardiovascular: Capillary refill < 3 seconds Patient's skin is warm and dry. Respiratory: Airway is patent Respiratory effort is even, unlabored, Respiratory pattern is regular, symmetrical. GI: Bowel sounds present X 4 quads. Abdomen is tender to palpation in epigastric area. : EENT: No signs and/or symptoms were reported regarding the EENT system. Derm: Skin is intact, is healthy with good turgor, Skin is pink, warm \T\ dry. normal. Musculoskeletal: Circulation, motion, and sensation intact. Capillary refill < 3 seconds. 00:50 Reassessment: Patient appears in no apparent distress at this time. Patient and/or mg2 family updated on plan of care and expected duration. Pain level reassessed. Patient is alert, oriented x 3, equal unlabored respirations, skin warm/dry/pink. Vital Signs: 01/13 23:36 BP 131 / 76; Pulse 75; Resp 18; Temp 98.6(TE); Pulse Ox 99% on R/A; Weight 68.04 kg lp1 (R); Height 5 ft. 3 in. (160.02 cm); Pain 8/10; 01/14 01:55 BP 128 / 68; Pulse 76; Resp 16; Temp 98.5; Pulse Ox 99% on R/A; rv 01/13 23:36 Body Mass Index 26.57 (68.04 kg, 160.02 cm) lp1 ED Course: 01/13 23:29 Patient arrived in ED. ds1 23:38 Triage completed. lp1 23:38 Nathaniel Chi RN is Primary Nurse. mg2 23:38 Arm band placed on. lp1 23:42 [facility] kb 23:42 Miquel Ortiz MD is Attending Physician. kb 23:44 No provider procedures requiring assistance completed. Inserted saline lock: 20 gauge mg2 in left antecubital area, using aseptic technique. Blood collected. 01/14 00:11 Patient has correct armband on for positive identification. Pulse ox on. NIBP on. mg2 00:50 CT Abd/Pelvis - IV Contrast Only In Process Unspecified. EDMS 01:54 IV discontinued, intact, bleeding controlled, No redness/swelling at site. Pressure rv dressing applied. Administered Medications: 01/13 23:52 Drug: TORadol - Ketorolac 15 mg Route: IVP; Site: left antecubital; mg2 01/14 01:54 Follow up: Response: No adverse reaction rv 01/13 23:52 Drug: Zofran (Ondansetron) 4 mg Route: IVP; Site: left antecubital; mg2 01/14 01:54 Follow up: Response: No adverse reaction rv 01/13 23:52 Drug: Pepcid 20 mg Route: IVP; Site: left antecubital; mg2 01/14 01:54 Follow up: Response: No adverse reaction rv 00:01 Drug: NS 0.9% 1000 ml Route: IV; Rate: 1000 ml; Site: left antecubital; mg2 01:54 Follow up: IV Status: Completed infusion; IV Intake: 1000ml rv Intake: 01:54 IV: 1000ml; Total: 1000ml. rv Outcome: 01:39 Discharge ordered by . tw4 01:52 Discharged to home ambulatory. rv 01:52 Condition: good 01:52 Discharge instructions given to patient, Instructed on discharge instructions, follow up and referral plans. medication usage, Demonstrated understanding of instructions, follow-up care, medications, Prescriptions given X 2. 01:55 Patient left the ED. rv Signatures: Dispatcher [employer] EDMS Heidi Elaine, LASTING MACHINE OPERATOR-C LASTING MACHINE OPERATOR-Sole Anderson ds1 Lorena Elizondo RN RN lp1 Miquel Ortiz MD MD tw4 Nathaniel Chi RN RN mg2 Sj Wesley RN RN rv
--- NOTE | 2020-01-15 01:40 | EDPHYS ---
Physician Documentation [facility] Name: Maria Victoria Jain Age: 39 yrs Sex: Female : 1980 Arrival Date: 01/14/2020 Time: 23:29 Bed 5 Private MD: ED Physician Miquel Ortiz HPI: 01/14 00:16 This 39 yrs old Female presents to ER via Ambulatory with complaints of kb Abdominal Pain, Chest Pain - W/Breathing. 00:16 The patient presents with abdominal pain in the right upper quadrant. Onset: The kb symptoms/episode began/occurred today. The symptoms radiate to right mid back and mid-sternal area. Associated signs and symptoms: none. The symptoms are described as constant. Modifying factors: The symptoms are alleviated by nothing, the symptoms are aggravated by nothing. Severity of pain: At its worst the pain was moderate severe in the emergency department the pain is unchanged. The patient has experienced similar episodes in the past, a few times. The patient has not recently seen a physician. Pt reports she started having RUQ pain today. States she has had this same pain a month ago and was diagnosed with gallstones. Spoke to a surgeon at the time and was told it wasn't an emergent surgery so they wouldn't be able to do it due to COVID. . 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 - Social history:: Smoking status: Patient denies any tobacco usage or history of. ROS: 01/14 00:15 Constitutional: Negative for fever, chills, and weight loss, ENT: Negative for injury, kb pain, and discharge, Neck: Negative for injury, pain, and swelling, Cardiovascular: Negative for chest pain, palpitations, and edema, Respiratory: Negative for shortness of breath, cough, wheezing, and pleuritic chest pain, Back: Negative for injury and pain, MS/Extremity: Negative for injury and deformity, Skin: Negative for injury, rash, and discoloration, Neuro: Negative for headache, weakness, numbness, tingling, and seizure. Abdomen/GI: Positive for abdominal pain, Negative for nausea, vomiting, and diarrhea, constipation, abdominal cramps, abdominal distension, anorexia. Exam: 00:15 Constitutional: This is a well developed, well nourished patient who is awake, alert, kb and in no acute distress. Head/Face: Normocephalic, atraumatic. ENT: Nares patent. No nasal discharge, no septal abnormalities noted. Tympanic membranes are normal and external auditory canals are clear. Oropharynx with no redness, swelling, or masses, exudates, or evidence of obstruction, uvula midline. Mucous membranes moist. Neck: Trachea midline, no thyromegaly or masses palpated, and no cervical lymphadenopathy. Supple, full range of motion without nuchal rigidity, or vertebral point tenderness. No Meningismus. Chest/axilla: Normal chest wall appearance and motion. Nontender with no deformity. No lesions are appreciated. Cardiovascular: Regular rate and rhythm with a normal S1 and S2. No gallops, murmurs, or rubs. Normal PMI, no JVD. No pulse deficits. Respiratory: Lungs have equal breath sounds bilaterally, clear to auscultation and percussion. No rales, rhonchi or wheezes noted. No increased work of breathing, no retractions or nasal flaring. Back: No spinal tenderness. No costovertebral tenderness. Full range of motion. Skin: Warm, dry with normal turgor. Normal color with no rashes, no lesions, and no evidence of cellulitis. MS/ Extremity: Pulses equal, no cyanosis. Neurovascular intact. Full, normal range of motion. Neuro: Awake and alert, GCS 15, oriented to person, place, time, and situation. Cranial nerves II-XII grossly intact. Motor strength 5/5 in all extremities. Sensory grossly intact. Cerebellar exam normal. Normal gait. 00:15 Abdomen/GI: Inspection: abdomen appears normal, Bowel sounds: normal, in all quadrants, Palpation: soft, in all quadrants, moderate abdominal tenderness, in the right upper quadrant, Indicators: Hernandez's sign is positive. Vital Signs: 01/13 23:36 BP 131 / 76; Pulse 75; Resp 18; Temp 98.6(TE); Pulse Ox 99% on R/A; Weight 68.04 kg lp1 (R); Height 5 ft. 3 in. (160.02 cm); Pain 8/10; 01/14 01:55 BP 128 / 68; Pulse 76; Resp 16; Temp 98.5; Pulse Ox 99% on R/A; rv 01/13 23:36 Body Mass Index 26.57 (68.04 kg, 160.02 cm) lp1 MDM: 01/13 23:42 Patient medically screened. kb 01/14 00:15 Data reviewed: vital signs, nurses notes. Data interpreted: Pulse oximetry: on room air kb is 99 %. Interpretation: normal. 00:44 Transition of care: After a detail discussion of the patient's case, care is kb transferred to Miquel Ortiz MD. 01:33 Counseling: I had a detailed discussion with the patient and/or guardian regarding: the tw4 historical points, exam findings, and any diagnostic results supporting the discharge/admit diagnosis, lab results, radiology results. Special discussion: Based on the patient's Hx, exam, and Dx evaluation, there is no indication for emergent surgery or inpatient Tx. It is understood by the patient/guardian that if the Sx's persist or worsen they need to return immediately for re-evaluation. I discussed with the patient/guardian in detail that at this point there is no indication for admission to the hospital. It is understood, however, that if the symptoms persist or worsen the patient needs to return immediately for re-evaluation. ED course: Pt' s CT scan negative for acute intracranial abnormmality. 01/13 23:38 Order name: Basic Metabolic Panel; Complete Time: 00:14 mg2 01/13 23:38 Order name: CBC with Diff; Complete Time: 00:06 mg2 01/13 23:38 Order name: Creatinine for Radiology; Complete Time: 00:10 mg2 01/13 23:38 Order name: Hepatic Function; Complete Time: 00:14 mg2 01/13 23:38 Order name: Lipase; Complete Time: 00:14 mg2 01/14 00:15 Order name: CT Abd/Pelvis - IV Contrast Only kb 01/13 23:38 Order name: IV Saline Lock; Complete Time: 23:43 mg2 01/13 23:38 Order name: Labs collected and sent; Complete Time: 23:43 mg2 Administered Medications: 01/13 23:52 Drug: TORadol - Ketorolac 15 mg Route: IVP; Site: left antecubital; mg2 01/14 01:54 Follow up: Response: No adverse reaction rv 01/13 23:52 Drug: Zofran (Ondansetron) 4 mg Route: IVP; Site: left antecubital; mg2 01/14 01:54 Follow up: Response: No adverse reaction rv 01/13 23:52 Drug: Pepcid 20 mg Route: IVP; Site: left antecubital; mg2 01/14 01:54 Follow up: Response: No adverse reaction rv 00:01 Drug: NS 0.9% 1000 ml Route: IV; Rate: 1000 ml; Site: left antecubital; mg2 01:54 Follow up: IV Status: Completed infusion; IV Intake: 1000ml rv Disposition: 06:44 Co-signature as Attending Physician, Miquel Ortiz MD I agree with the assessment and tw4 plan of care. Disposition: 01/15/20 01:39 Discharged to Home. Impression: Cholelithiasis. - Condition is Stable. - Discharge Instructions: Cholelithiasis, [id number]. - Prescriptions for Bentyl 20 mg Oral Tablet - take 1 tablet by ORAL route every 6 hours As needed; 20 tablet. Zofran 4 mg Oral Tablet - take 1 tablet by ORAL route every 6 hours As needed; 20 tablet. - Medication Reconciliation Form, Thank You Letter, Antibiotic Education, Prescription Opioid Use form. - Follow up: Emergency Department; When: As needed; Reason: Worsening of condition. Follow up: Private Physician; When: 2 - 3 days; Reason: Recheck today's complaints, Continuance of care, Re-evaluation by your physician. - Problem is new. - Symptoms have improved. Signatures: Dispatcher [employer] [facility] Heidi Elaine, [facility] [employer]-CkLorena Fisher RN RN lp1 Miquel Ortiz MD MD tw4 Nathaniel Chi, PEPE RN mg2 Sj Wesley RN RN rv Corrections: (The following items were deleted from the chart) 01:55 01:39 01/15/2020 01:39 Discharged to Home. Impression: Cholelithiasis. Condition is rv Stable. Discharge Instructions: Cholelithiasis, [id number]. Prescriptions for Bentyl 20 mg Oral Tablet - take 1 tablet by ORAL route every 6 hours As needed; 20 tablet, Zofran 4 mg Oral Tablet - take 1 tablet by ORAL route every 6 hours As needed; 20 tablet. and Forms are Medication Reconciliation Form, Thank You Letter, Antibiotic Education, Prescription Opioid Use. Follow up: Emergency Department; When: As needed; Reason: Worsening of condition. Follow up: Private Physician; When: 2 - 3 days; Reason: Recheck today's complaints, Continuance of care, Re-evaluation by your physician. Problem is new. Symptoms have improved. tw4
[2020-01-15 02:02] VITALS: O2SAT 99
[2020-01-15 02:04] VITALS: BP 128/68; TEMP 98.5
--- NOTE | 2020-01-15 11:02 | RAD REPORT ---
EXAM DESCRIPTION: CT - Abdomen Pelvis W Contrast - 01/15/2020 5:35 am CLINICAL HISTORY: ABD PAIN COMPARISON: 03/06/2019. TECHNIQUE: CT ABDOMEN PELVIS WITH IV CONTRAST on 01/15/2020 12:15 AM CDT This exam was performed according to our departmental dose-optimization program, which includes autom ated exposure control, adjustment of the mA and/or kV according to patient size and/or use of iterati ve reconstruction technique. FINDINGS: Lower lungs are clear. Abdomen: The liver is normal in appearance. There is no biliary dilatation. The pancreas and spleen a re normal in appearance. The adrenal glands and kidneys are unremarkable. Abdominal aorta is normal in course and caliber without aneurysm. There is no free air. There is no r etroperitoneal adenopathy.There is a small fat-containing umbilical hernia. Pelvis: There is no bowel obstruction. Urinary bladder is unremarkable. There is no free fluid. Appen reese is normal. Hysterectomy was performed. Skeleton: There are no acute osseous findings. No suspicious bony lesions. IMPRESSION: No definite acute process. Electronically signed by: Dev Garnica MD 01/15/2020 12:57 AM CDT Due to temporary technical issues with the PACS/Fluency reporting system, reports are being signed by the in house radiologist as a courtesy to ensure prompt reporting. The interpreting radiologist is f ully responsible for the content of the report.
== END 2020-01-15 01:55 | disposition home or self-care (01) ==
LOC: ER 23:26
DX: K80.20 Calculus of gallbladder without cholecystitis without obstruction (principal)
CPT/HCPCS: 36415; 74177; 80048; 80076; 83690; 85025; 96361; 96374; 96375; 99284; J2405; J7030; Q9967